=== PATIENT | female | born 1965 | race Two or more races ===

== ENCOUNTER 2016-08-29 16:59 | Emergency (ER) | payer BC, OTHER ==
[~2016-08-29] VITALS: Ht 165.1 cm; Wt 97.5 kg
[~2016-08-29 16:59] MED LIST: FERR325T72 PO; PANT40TA3 PO
[2016-08-29] MEDS ORDERED: KETOROLAC TROMETHAMINE 60 MG/2 ML SYRINGE. IM ONE (19:00)
[2016-08-29 19:05] VITALS: BP 165/79
--- NOTE | 2016-08-29 19:17 | PHYS DOC ---
Past Medical History Past Medical History: No Pertinent History Past Surgical History: Other Additional Past Surgical Histo: ovarian cyst Alcohol Use: None Drug Use: None Adult General Chief Complaint Chief Complaint: CHEST PAIN HPI HPI 51-year-old Croatian-speaking female whose been having ongoing left upper chest wall pain for the last 2 months. She is also complaining of some sided lower lumbar tenderness for the last 4 days that she states is worse with movement. She denies any inciting injury. She denies any history of heart problems. She has been taking ibuprofen which has relieved some of her symptoms. She does not appear to be in any acute distress upon my initial evaluation. She does not smoke. Review of Systems Review of Systems Constitutional: Denies fever or chills [] Eyes: Denies change in visual acuity, redness, or eye pain [] HENT: Denies nasal congestion or sore throat [] Respiratory: Denies cough or shortness of breath [] Cardiovascular: No additional information not addressed in HPI [] GI: Denies abdominal pain, nausea, vomiting, bloody stools or diarrhea [] : Denies dysuria or hematuria [] Musculoskeletal: Denies back pain or joint pain [] Integument: Denies rash or skin lesions [] Neurologic: Denies headache, focal weakness or sensory changes [] Endocrine: Denies polyuria or polydipsia [] Current Medications Current Medications Current Medications Medications (Trade) Dose Ordered Sig/[facility] Start Time Stop Time Status Last Admin Dose Admin Ketorolac Tromethamine (Toradol Im) 60 mg 1X ONCE 08/29/16 19:00 08/29/16 19:01 DC 08/29/16 19:18 60 MG Allergies Allergies Allergies Coded Allergies Type Severity Reaction Last Updated Verified No Known Drug Allergies 11/26/14 No Physical Exam Physical Exam Constitutional: Well developed, well nourished, no acute distress, non-toxic appearance. [] HENT: Normocephalic, atraumatic, bilateral external ears normal, oropharynx moist, no oral exudates, nose normal. [] Eyes: PERRLA, EOMI, conjunctiva normal, no discharge. [] Neck: Normal range of motion, no tenderness, supple, no stridor. [] Cardiovascular:Heart rate regular rhythm, no murmur [] Lungs & Thorax: Bilateral breath sounds clear to auscultation [] Abdomen: Bowel sounds normal, soft, no tenderness, no masses, no pulsatile masses. [] Skin: Warm, dry, no erythema, no rash. [] Back: No tenderness, no CVA tenderness. [] Extremities: No tenderness, no cyanosis, no clubbing, ROM intact, no edema. [] Neurologic: Alert and oriented X 3, normal motor function, normal sensory function, no focal deficits noted. [] Psychologic: Affect normal, judgement normal, mood normal. [] Current Patient Data Vital Signs Vital Signs Date Time Temp Pulse Resp B/P Pulse Ox O2 Delivery O2 Flow Rate FiO2 08/29/16 17:36 98.0 74 18 172/98 99 Room Air 98.0 Lab Values Laboratory Tests Test 08/29/16 18:15 Troponin I Quantitative < 0.017ng/mL (0.000-0.055) EKG EKG EKG as interpreted by me shows a sinus rhythm with a rate of 67 beats per. There are no obvious ischemic findings. This EKG does not meet STEMI criteria. Radiology/Procedures Radiology/Procedures One view of the chest does not reveal any acute cardiopulmonary process. Course & Med Decision Making Course & Med Decision Making Pertinent Labs and Imaging studies reviewed. (See chart for details) [] Dragon Disclaimer Dragon Disclaimer This electronic medical record was generated, in whole or in part, using a voice recognition dictation system. Departure Departure Impression: Primary Impression: Chest wall pain Additional Impression: Lumbar pain Disposition: 01 HOME, SELF-CARE Admitting Physician: Other Condition: STABLE Referrals: NO PCP (PCP) Patient Instructions: Back Pain, Adult, [id number], Chest Wall Pain, Easy-to- Read Additional Instructions: Please take your medication as prescribed and avoid any strenuous activities. Follow up with your primary doctor in the next 2-3 days for your low back pain and chest pain. Return to the ER if you develop any worsening of your symptoms. Scripts Cyclobenzaprine Hcl 10 Mg [id number] Mg PO TID #15 TAB Prov:JEREMIAH MIRANDA DO 08/29/16 Ibuprofen 800 Mg [id number] Mg PO PRN Q6HRS PRN INFLAMMATION #20 TAB Prov:JEREMIAH MIRANDA DO 08/29/16 Problem Qualifiers JEREMIAH MIRANDA DO Aug 29, 2016 19:17
[2016-08-29] MEDS ORDERED: IBUP-1060 PO (19:22)
[2016-08-29] MEDS ORDERED: CYCL10TA2 PO (19:22)
--- NOTE | 2016-08-30 08:38 | RAD ---
Portable chest, 08/29/2016: History: Chest pain Comparison is made to a study from 07/25/2011. The heart is at the upper limits of normal in size. The pulmonary vascularity is normal. No pulmonary infiltrates are seen. There is no evidence of pleural fluid. Mild spurring is present in the spine. IMPRESSION: No acute cardiopulmonary abnormality is detected.
--- NOTE | 2016-08-30 09:41 | EKG ---
[facility] [address] [place] [address] Test Date: 2016-08-29 Test Time: 18:12:16 Pat Name: EDD CASTELLANOS Department: Room: Gender: F Tender Labor: : 1965 Requested By: JEREMIAH MIRANDA Order Number: [id number] Reading MD: Delmi Naylor Measurements Intervals [place] Rate: 67 P: 38 IA: 178 QRS: 19 QRSD: 92 T: 43 QT: 420 QTc: 447 Interpretive Statements SINUS RHYTHM NO SPECIFIC ECG ABNORMALITIES RI6.01 No previous ECG available for comparison Electronically Signed On 08-30-2016 20:55:39 CDT by Delmi Naylor
== END 2016-08-29 19:29 | disposition home or self-care (01) ==
LOC: ER 16:59
DX: R07.89 Other chest pain (principal); M54.5 Low back pain
CPT/HCPCS: 36415; 71010; 84484; 93005; 96372; 99285; J1885

== ENCOUNTER 2018-09-10 08:07 | Inpatient (IN) | payer SELFPAY ==
[~2018-09-10] VITALS: Ht 167.6 cm; Wt 93.0 kg
[~2018-09-10 08:07] MED LIST changes: +CYCL10TA2 PO; +IBUP-1060 PO
--- NOTE | 2018-09-10 08:25 | PHYS DOC ---
Past Medical History Past Medical History: No Pertinent History Past Surgical History: Other Additional Past Surgical Histo: ovarian cyst Alcohol Use: None Drug Use: None Adult General Chief Complaint Chief Complaint: FLANK PAIN HPI HPI Patient is a 53 year old female with a history of anemia presents to the ED complaining of flank pain 5 days ago. Patient states she started having pain 5 days ago. Describes the pain as sharp. Rates the pain as 6 out of 10. States that she has some urinary frequency/urgency problems. Denies dysuria, hematuria , history of kidney stones, chest pain, shortness of breath, diarrhea, blood in stool, headache or weakness. Review of Systems Review of Systems Constitutional: Denies fever or chills [] Eyes: Denies change in visual acuity, redness, or eye pain [] HENT: Denies nasal congestion or sore throat [] Respiratory: Denies cough or shortness of breath [] Cardiovascular: No additional information not addressed in HPI [] GI: Complains of flank pain. Denies abdominal pain, nausea, vomiting, bloody stools or diarrhea [] : Denies dysuria or hematuria [] Musculoskeletal: Denies back pain or joint pain [] Integument: Denies rash or skin lesions [] Neurologic: Denies headache, focal weakness or sensory changes [] All other systems were reviewed and found to be within normal limits, except as documented in this note. Current Medications Current Medications Current Medications Medications (Trade) Dose Ordered Sig/[facility] Start Time Stop Time Status Last Admin Dose Admin Ketorolac Tromethamine (Toradol 30mg Vial) 30 mg 1X ONCE 09/10/18 08:30 09/10/18 08:32 DC 09/10/18 08:55 30 MG Ondansetron HCl (Zofran) 4 mg 1X ONCE 09/10/18 08:30 09/10/18 08:32 DC 09/10/18 08:53 4 MG Allergies Allergies Allergies Coded Allergies Type Severity Reaction Last Updated Verified No Known Drug Allergies 11/26/14 No Physical Exam Physical Exam Constitutional: Well developed, well nourished, no acute distress, non-toxic appearance. [] HENT: Normocephalic, atraumatic Eyes: PERRLA, EOMI, conjunctiva normal, no discharge. [] Neck: Normal range of motion, no tenderness, supple, no stridor. [] Cardiovascular:Heart rate regular rhythm, no murmur [] Lungs & Thorax: Bilateral breath sounds clear to auscultation [] Abdomen: Bowel sounds normal, soft, no tenderness, Negative mcburneys/murphys. no masses, no pulsatile masses. [] Skin: Warm, dry, no erythema, no rash. [] Back: No tenderness, no CVA tenderness. [] Extremities: No tenderness, no cyanosis, no clubbing, ROM intact, no edema. [] Neurologic: Alert and oriented X 3, normal motor function, normal sensory function, no focal deficits noted. [] Psychologic: Affect normal, judgement normal, mood normal. [] Current Patient Data Vital Signs Vital Signs Date Time Temp Pulse Resp B/P (MAP) Pulse Ox O2 Delivery O2 Flow Rate FiO2 09/10/18 10:11 62 169/78 (108) 100 Room Air 09/10/18 08:10 98.0 14 98.0 Lab Values Laboratory Tests Test 09/10/18 08:20 09/10/18 08:21 09/10/18 08:50 Urine Collection Type Void Urine Color Yellow Urine Clarity Clear Urine pH 6.5 Urine Specific [place] 1.015 Urine Protein Negative mg/dL (NEG-TRACE) Urine Glucose (UA) Negative mg/dL (NEG) Urine Ketones (Stick) Negative mg/dL (NEG) Urine Blood Negative (NEG) Urine Nitrite Negative (NEG) Urine Bilirubin Negative (NEG) Urine Urobilinogen Dipstick 0.2 mg/dL (0.2 mg/dL) Urine Leukocyte Esterase Trace (NEG) Urine RBC Occ /HPF (0-2) Urine WBC 1-4 /HPF (0-4) Urine Squamous Epithelial Cells Mod /LPF Urine Bacteria Few /HPF (0-FEW) Urine Mucus Slight /LPF POC Urine HCG, Qualitative Hcg negative (Negative) White Blood Count 6.2 x10^3/uL (4.0-11.0) Red Blood Count 4.66 x10^6/uL (3.50-5.40) Hemoglobin 13.8 g/dL (12.0-15.5) Hematocrit 41.5 % (36.0-47.0) Mean Corpuscular Volume 89 fL (79-100) Mean Corpuscular Hemoglobin 30 pg (25-35) Mean Corpuscular Hemoglobin Concent 33 g/dL (31-37) Red Cell Distribution Width 14.2 % (11.5-14.5) Platelet Count 274 x10^3/uL (140-400) Neutrophils (%) (Auto) 53 % (31-73) Lymphocytes (%) (Auto) 36 % (24-48) Monocytes (%) (Auto) 8 % (0-9) Eosinophils (%) (Auto) 2 % (0-3) Basophils (%) (Auto) 1 % (0-3) Neutrophils # (Auto) 3.3 x10^3uL (1.8-7.7) Lymphocytes # (Auto) 2.2 x10^3/uL (1.0-4.8) Monocytes # (Auto) 0.5 x10^3/uL (0.0-1.1) Eosinophils # (Auto) 0.1 x10^3/uL (0.0-0.7) Basophils # (Auto) 0.0 x10^3/uL (0.0-0.2) Sodium Level 141 mmol/L (136-145) Potassium Level 3.5 mmol/L (3.5-5.1) Chloride Level 103 mmol/L (98-107) Carbon Dioxide Level 30 mmol/L (21-32) Anion Gap 8 (6-14) Blood Urea Nitrogen 12 mg/dL (7-20) Creatinine 0.8 mg/dL (0.6-1.0) Estimated GFR (Cockcroft-Gault) 75.3 BUN/Creatinine Ratio 15 (6-20) Glucose Level 124 mg/dL (70-99) H Calcium Level 8.8 mg/dL (8.5-10.1) Total Bilirubin 0.4 mg/dL (0.2-1.0) Aspartate Amino Transferase (AST) 41 U/L (15-37) H Alanine Aminotransferase (ALT) 49 U/L (14-59) Alkaline Phosphatase 120 U/L (46-116) H Total Protein 7.8 g/dL (6.4-8.2) Albumin 3.6 g/dL (3.4-5.0) Albumin/Globulin Ratio 0.9 (1.0-1.7) L Lipase 128 U/L (73-393) Laboratory Tests 09/10/18 08:50 Laboratory Tests 09/10/18 08:50 EKG EKG [] Radiology/Procedures Radiology/Procedures [] CT abdomen/pelvis without contrast 09/10/2018 8:20 AM INDICATION: Right flank pain for 2 weeks COMPARISON: None available TECHNIQUE: Multiple axial CT images of the abdomen and pelvis were obtained without intravenous contrast. Coronal and sagittal reformats are provided. FINDINGS: Mild bronchial wall thickening is noted at the lung bases. There is bibasilar subsegmental atelectasis. Heart size is within normal limits. Evaluation of the solid abdominal viscera is limited by the lack of intravenous contrast. Liver, spleen, bilateral adrenal glands and pancreas are normal in appearance. Calcified gallstone is identified within gallbladder. There are no adjacent inflammatory changes. Abdominal aorta is normal in course and caliber. There are no pathologically enlarged lymph nodes in abdomen and pelvis. There is no free fluid or free intraperitoneal air. The kidneys are relatively symmetric in appearance. There is no suspicious renal mass within the limitations of a noncontrast examination. There is no hydronephrosis. There are no calculi within the kidneys, ureters or urinary bladder. There is mild colonic diverticulosis. There is abnormal focal dilatation of the mid appendix measuring up to 11 mm without significant adjacent inflammatory changes. Normal appendix lumen measures approximately 4 mm. There is additional focal dilatation of the tip of the appendix measuring up to 9 mm. Small large bowel are normal in caliber. No evidence for bowel obstruction or inflammation. No suspicious osseous abnormality is identified. There is minimal dextroconvex curvature of the lumbar spine. Uterus is normal by CT. Suspicious adnexal mass identified. IMPRESSION: 1. There are focal areas of dilatation of the appendix measuring up to 11 mm involving the mid appendix. No adjacent inflammatory changes are present. Findings are atypical for appendicitis, however may be seen with a developing mucocele or alternate appendiceal lesion. No significant lymphadenopathy is identified within the right lower quadrant mesentery. 2. No evidence for obstructive uropathy. No renal calculi are identified. There is no hydronephrosis. 3. Mild diverticulosis. Course & Med Decision Making Course & Med Decision Making Pertinent Labs and Imaging studies reviewed. (See chart for details) Abnormal findings on CT imaging of appendix. No tenderness or wbc. Will discuss with on-call surgeon. []Discussed case with Dr. Mazariegos. States he will see patient as consult this afternoon and decide further management. Patient made NPO. Last meal was last night. Discussed case with Dr. Salvador. Agrees to admission and further management of patient. Patient stable for admission; resting comfortably at this time. Dragon Disclaimer Dragon Disclaimer This electronic medical record was generated, in whole or in part, using a voice recognition dictation system. Departure Departure Impression: Primary Impression: Abdominal pain Additional Impression: Appendicitis Disposition: ADMITTED INPATIENT Admitting Physician: Juani Salvador Condition: STABLE Referrals: NO PCP (PCP) Problem Qualifiers CHANI MORGAN Sep 10, 2018 08:25
[2018-09-10] MEDS ORDERED: KETOROLAC 30 MG/ML VIAL. IV ONE (08:30)
[2018-09-10] MEDS ORDERED: ONDANSETRON PF 4 MG/2 ML VIAL. IV ONE (08:30)
[2018-09-10 08:41] LABS: BILIRUBIN,URINE NEGATIVE (NEG); CLARITY,URINE CLEAR; COLOR,URINE YELLOW; NITRITE,URINE NEGATIVE (NEG); PH,URINE 6.5; PROTEIN,URINE NEGATIVE (NEG-TRACE); UROBILINOGEN,URINE 0.2 mg/dL (0.2 mg/dL)
[2018-09-10 08:48] LABS: SQUAMOUS EPITHELIAL CELL,UR MOD /LPF
[2018-09-10 08:49] LABS: BACTERIA,URINE FEW /HPF (0-FEW); RBC,URINE OCC /HPF (0-2)
[2018-09-10 09:07] LABS: BASO % 1 % (0-3); EOS # 0.1 x10^3/uL (0.0-0.7); EOS % 2 % (0-3); HEMATOCRIT 41.5 % (36.0-47.0); HEMOGLOBIN 13.8 g/dL (12.0-15.5); LYMPH # 2.2 x10^3/uL (1.0-4.8); LYMPH % 36 % (24-48); MEAN CORPUSCULAR HEMOGLOBIN 30 pg (25-35); MEAN CORPUSCULAR HGB CONC 33 g/dL (31-37); MEAN CORPUSCULAR VOLUME 89 fL (79-100); MONO # 0.5 x10^3/uL (0.0-1.1); MONO % 8 % (0-9); NEUT # 3.3 x10^3uL (1.8-7.7); NEUT % 53 % (31-73); PLATELET COUNT 274 x10^3/uL (140-400); RED BLOOD COUNT 4.66 x10^6/uL (3.50-5.40); RED CELL DISTRIBUTION WIDTH 14.2 % (11.5-14.5); WHITE BLOOD COUNT 6.2 x10^3/uL (4.0-11.0)
[2018-09-10 09:15] LABS: CALCIUM 8.8 mg/dL (8.5-10.1); CREATININE 0.8 mg/dL (0.6-1.0); GFR 75.3; POTASSIUM 3.5 mmol/L (3.5-5.1)
[2018-09-10 09:20] LABS: ALBUMIN 3.6 g/dL (3.4-5.0); ALBUMIN/GLOBULIN RATIO 0.9 (1.0-1.7); TOTAL BILIRUBIN 0.4 mg/dL (0.2-1.0); TOTAL PROTEIN 7.8 g/dL (6.4-8.2)
--- NOTE | 2018-09-10 09:33 | RAD ---
PQRS Compliance Statement: One or more of the following individualized dose reduction techniques were utilized for this examination: 1. Automated exposure control 2. Adjustment of the mA and/or kV according to patient size 3. Use of iterative reconstruction technique CT abdomen/pelvis without contrast 09/10/2018 8:20 AM INDICATION: Right flank pain for 2 weeks COMPARISON: None available TECHNIQUE: Multiple axial CT images of the abdomen and pelvis were obtained without intravenous contrast. Coronal and sagittal reformats are provided. FINDINGS: Mild bronchial wall thickening is noted at the lung bases. There is bibasilar subsegmental atelectasis. Heart size is within normal limits. Evaluation of the solid abdominal viscera is limited by the lack of intravenous contrast. Liver, spleen, bilateral adrenal glands and pancreas are normal in appearance. Calcified gallstone is identified within gallbladder. There are no adjacent inflammatory changes. Abdominal aorta is normal in course and caliber. There are no pathologically enlarged lymph nodes in abdomen and pelvis. There is no free fluid or free intraperitoneal air. The kidneys are relatively symmetric in appearance. There is no suspicious renal mass within the limitations of a noncontrast examination. There is no hydronephrosis. There are no calculi within the kidneys, ureters or urinary bladder. There is mild colonic diverticulosis. There is abnormal focal dilatation of the mid appendix measuring up to 11 mm without significant adjacent inflammatory changes. Normal appendix lumen measures approximately 4 mm. There is additional focal dilatation of the tip of the appendix measuring up to 9 mm. Small large bowel are normal in caliber. No evidence for bowel obstruction or inflammation. No suspicious osseous abnormality is identified. There is minimal dextroconvex curvature of the lumbar spine. Uterus is normal by CT. Suspicious adnexal mass identified. IMPRESSION: 1. There are focal areas of dilatation of the appendix measuring up to 11 mm involving the mid appendix. No adjacent inflammatory changes are present. Findings are atypical for appendicitis, however may be seen with a developing mucocele or alternate appendiceal lesion. No significant lymphadenopathy is identified within the right lower quadrant mesentery. 2. No evidence for obstructive uropathy. No renal calculi are identified. There is no hydronephrosis. 3. Mild diverticulosis. Electronically signed by: Heaven Dumont MD (09/10/2018 9:30 AM) [id number]
[2018-09-10] MEDS ORDERED: ONDANSETRON PF 4 MG/2 ML VIAL. IV PRN ×4 (10:45→11:15)
[2018-09-10] MEDS ORDERED: fentaNYL PF VIAL 100 MCG/2 ML VIAL IV PRN ×5 (10:45→11:00)
[2018-09-10] MEDS: IV RINGERS,LACTATED 1000ML 1,000 ML IV SCH ×2 (10:51→21:04)
[2018-09-10] MEDS ORDERED: IV RINGERS,LACTATED 1000ML 1,000 ML IV SCH (10:51)
--- NOTE | 2018-09-10 10:56 | PDOC2 ---
MALENA VERDIN PATTERN CHART WRITER 09/10/18 1056: CONSULT Date of Consult Date of Consult DATE: 09/10/18 TIME: 10:50 Reason for Consult Reason for Consult: abdominal pain Referring Physician Referring Physician: ER Identification/Chief Complaint Chief Complaint abdominal pain Source Source: Chart review, Patient History of Present Illness Reason for Visit: Family interprets for patient . Repots pain to right back and mid right abdomen for 6 days. Has been eating less, some bloating with eating. Denies n/ v. No fevers or chills. Pain has stayed about the same. some chronic issues with constipation and diarrhea. Past Medical History Cardiovascular: No pertinent hx Pulmonary: No pertinent hx GI: No pertinent hx Heme/Onc: No pertinent hx Hepatobiliary: No pertinent hx Past Surgical History Past Surgical History: No pertinent history Family History Family History: No Significant Social History ALCOHOL: none Drugs: None Lives: with Family Domestic Violence: Neg Current Problem List Problem List Problems Medical Problems: (1) Abdominal pain Status: Acute (2) Appendicitis Status: Acute Current Medications Current Medications Current Medications Ondansetron HCl (Zofran) 4 mg 1X ONCE IV Last administered on 09/10/18at 08:53; Start 09/10/18 at 08:30; Stop 09/10/18 at 08:32; Status DC Ketorolac Tromethamine (Toradol 30mg Vial) 30 mg 1X ONCE IV Last administered on 09/10/18at 08:55; Start 09/10/18 at 08:30; Stop 09/10/18 at 08:32; Status DC Ondansetron HCl (Zofran) 4 mg PRN Q8HRS PRN IV NAUSEA/VOMITING; Start 09/10/18 at 10:45; Stop 09/11/18 at 10:44 Fentanyl Citrate (Fentanyl 2ml Vial) 50 mcg PRN Q1HR PRN IV PAIN; Start at 10:45; Stop 09/11/18 at 10:44 Active Scripts Active Cyclobenzaprine Hcl 10 Mg Tablet 10 Mg PO TID Ibuprofen 800 Mg Tablet 800 Mg PO PRN Q6HRS PRN Feosol (Ferrous Sulfate) 325 Mg Tablet 325 Mg PO BID Protonix (Pantoprazole Sodium) 40 Mg Tablet 40 Mg PO DAILYAC Allergies Allergies: Coded Allergies: No Known Drug Allergies (Unverified , 11/26/14) ROS General: No: Chills, Other (fevers) PSYCHOLOGICAL ROS: No: Anxiety, Depression Eyes: No Blurry vision, No Double vision HEENT: No: Sore Throat Hematological and Lymphatic: No: Bleeding Problems, Blood Clots Respiratory: YES: Shortness of breath (due to acute abdominal pain); No: Cough Cardiovascular: No Chest Pain, No Palpitations Gastrointestinal: Yes Other (see hpi) Genitourinary: No Dysuria, No Hematuria Musculoskeletal: No Joint Pain, No Muscle Pain Neurological: No Confusion, No Numbness/Tingling Skin: No Pruritus, No Rash Physical Exam General: Alert, Oriented X3, Cooperative, No acute distress HEENT: PERRLA, Mucous membr. moist/pink Lungs: Clear to auscultation, Normal air movement Heart: Regular rate, Normal S1, Normal S2, No murmurs Abdomen: Soft, No tenderness, Other (ND) Extremities: No clubbing, No cyanosis Skin: No rashes Neuro: Normal gait, Normal speech Psych/Mental Status: Mental status NL, Mood NL MUSCULOSKELETAL: No deformity, No swelling Vitals VITALS Vital Signs Date Time Temp Pulse Resp B/P (MAP) Pulse Ox O2 Delivery O2 Flow Rate FiO2 09/10/18 08:10 98.0 63 14 199/104 (135) 98 Room Air 98.0 Labs Labs Laboratory Tests Test 09/10/18 08:20 09/10/18 08:21 09/10/18 08:50 Urine Collection Type Void Urine Color Yellow Urine Clarity Clear Urine pH 6.5 Urine Specific [place] 1.015 Urine Protein Negative mg/dL (NEG-TRACE) Urine Glucose (UA) Negative mg/dL (NEG) Urine Ketones (Stick) Negative mg/dL (NEG) Urine Blood Negative (NEG) Urine Nitrite Negative (NEG) Urine Bilirubin Negative (NEG) Urine Urobilinogen Dipstick 0.2 mg/dL (0.2 mg/dL) Urine Leukocyte Esterase Trace (NEG) Urine RBC Occ /HPF (0-2) Urine WBC 1-4 /HPF (0-4) Urine Squamous Epithelial Cells Mod /LPF Urine Bacteria Few /HPF (0-FEW) Urine Mucus Slight /LPF Bedside Urine HCG, Qualitative Hcg negative (Negative) White Blood Count 6.2 x10^3/uL (4.0-11.0) Red Blood Count 4.66 x10^6/uL (3.50-5.40) Hemoglobin 13.8 g/dL (12.0-15.5) Hematocrit 41.5 % (36.0-47.0) Mean Corpuscular Volume 89 fL (79-100) Mean Corpuscular Hemoglobin 30 pg (25-35) Mean Corpuscular Hemoglobin Concent 33 g/dL (31-37) Red Cell Distribution Width 14.2 % (11.5-14.5) Platelet Count 274 x10^3/uL (140-400) Neutrophils (%) (Auto) 53 % (31-73) Lymphocytes (%) (Auto) 36 % (24-48) Monocytes (%) (Auto) 8 % (0-9) Eosinophils (%) (Auto) 2 % (0-3) Basophils (%) (Auto) 1 % (0-3) Neutrophils # (Auto) 3.3 x10^3uL (1.8-7.7) Lymphocytes # (Auto) 2.2 x10^3/uL (1.0-4.8) Monocytes # (Auto) 0.5 x10^3/uL (0.0-1.1) Eosinophils # (Auto) 0.1 x10^3/uL (0.0-0.7) Basophils # (Auto) 0.0 x10^3/uL (0.0-0.2) Sodium Level 141 mmol/L (136-145) Potassium Level 3.5 mmol/L (3.5-5.1) Chloride Level 103 mmol/L (98-107) Carbon Dioxide Level 30 mmol/L (21-32) Anion Gap 8 (6-14) Blood Urea Nitrogen 12 mg/dL (7-20) Creatinine 0.8 mg/dL (0.6-1.0) Estimated GFR (Cockcroft-Gault) 75.3 BUN/Creatinine Ratio 15 (6-20) Glucose Level 124 mg/dL (70-99) Calcium Level 8.8 mg/dL (8.5-10.1) Total Bilirubin 0.4 mg/dL (0.2-1.0) Aspartate Amino Transf (AST/SGOT) 41 U/L (15-37) Alanine Aminotransferase (ALT/SGPT) 49 U/L (14-59) Alkaline Phosphatase 120 U/L (46-116) Total Protein 7.8 g/dL (6.4-8.2) Albumin 3.6 g/dL (3.4-5.0) Albumin/Globulin Ratio 0.9 (1.0-1.7) Lipase 128 U/L (73-393) Laboratory Tests Test 09/10/18 08:20 09/10/18 08:21 09/10/18 08:50 Urine Collection Type Void Urine Color Yellow Urine Clarity Clear Urine pH 6.5 Urine Specific [place] 1.015 Urine Protein Negative mg/dL (NEG-TRACE) Urine Glucose (UA) Negative mg/dL (NEG) Urine Ketones (Stick) Negative mg/dL (NEG) Urine Blood Negative (NEG) Urine Nitrite Negative (NEG) Urine Bilirubin Negative (NEG) Urine Urobilinogen Dipstick 0.2 mg/dL (0.2 mg/dL) Urine Leukocyte Esterase Trace (NEG) Urine RBC Occ /HPF (0-2) Urine WBC 1-4 /HPF (0-4) Urine Squamous Epithelial Cells Mod /LPF Urine Bacteria Few /HPF (0-FEW) Urine Mucus Slight /LPF Bedside Urine HCG, Qualitative Hcg negative (Negative) White Blood Count 6.2 x10^3/uL (4.0-11.0) Red Blood Count 4.66 x10^6/uL (3.50-5.40) Hemoglobin 13.8 g/dL (12.0-15.5) Hematocrit 41.5 % (36.0-47.0) Mean Corpuscular Volume 89 fL (79-100) Mean Corpuscular Hemoglobin 30 pg (25-35) Mean Corpuscular Hemoglobin Concent 33 g/dL (31-37) Red Cell Distribution Width 14.2 % (11.5-14.5) Platelet Count 274 x10^3/uL (140-400) Neutrophils (%) (Auto) 53 % (31-73) Lymphocytes (%) (Auto) 36 % (24-48) Monocytes (%) (Auto) 8 % (0-9) Eosinophils (%) (Auto) 2 % (0-3) Basophils (%) (Auto) 1 % (0-3) Neutrophils # (Auto) 3.3 x10^3uL (1.8-7.7) Lymphocytes # (Auto) 2.2 x10^3/uL (1.0-4.8) Monocytes # (Auto) 0.5 x10^3/uL (0.0-1.1) Eosinophils # (Auto) 0.1 x10^3/uL (0.0-0.7) Basophils # (Auto) 0.0 x10^3/uL (0.0-0.2) Sodium Level 141 mmol/L (136-145) Potassium Level 3.5 mmol/L (3.5-5.1) Chloride Level 103 mmol/L (98-107) Carbon Dioxide Level 30 mmol/L (21-32) Anion Gap 8 (6-14) Blood Urea Nitrogen 12 mg/dL (7-20) Creatinine 0.8 mg/dL (0.6-1.0) Estimated GFR (Cockcroft-Gault) 75.3 BUN/Creatinine Ratio 15 (6-20) Glucose Level 124 mg/dL (70-99) Calcium Level 8.8 mg/dL (8.5-10.1) Total Bilirubin 0.4 mg/dL (0.2-1.0) Aspartate Amino Transf (AST/SGOT) 41 U/L (15-37) Alanine Aminotransferase (ALT/SGPT) 49 U/L (14-59) Alkaline Phosphatase 120 U/L (46-116) Total Protein 7.8 g/dL (6.4-8.2) Albumin 3.6 g/dL (3.4-5.0) Albumin/Globulin Ratio 0.9 (1.0-1.7) Lipase 128 U/L (73-393) Assessment/Plan Assessment/Plan abdominal pain x [address] reviewed, possible appendix changes, wbc normal noted gallstone will have Dr Vidal review BORIS VIDAL MD 09/10/18 1656: CONSULT Assessment/Plan Assessment/Plan pt seen, interviewed (with the help of her family) and examined obtained a PIPIDA which showed prompt filling of the GB with drainage into the small bowel BP high will postpone any surgery (appy, lynn) for better BP control will follow Thanks for consult MALENA VERDIN APRN Sep 10, 2018 10:56 BORIS VIDAL MD Sep 10, 2018 16:56
[2018-09-10] MEDS ORDERED: PROCHLORPERAZINE 10 MG/2 ML VIAL. IV PRN ×2 (11:00)
[2018-09-10] MEDS ORDERED: HYDROmorphone 2 MG/ML VIAL IV PRN ×2 (11:00)
[2018-09-10] MEDS ORDERED: MORPHINE SULFATE 2 MG/ML VIAL. IV PRN ×2 (11:00)
--- NOTE | 2018-09-10 11:12 | PDOC1 ---
History and Physical Date of Admission Date of Admission DATE: 09/10/18 TIME: 11:09 Identification/Chief Complaint Chief Complaint Back pain Source Source: Caregiver, Chart review, Patient History of Present Illness History of Present Illness 39-year-old female, minimal [place], no significant past medical history, 5 to six-day history of what sounds like muscle sprain or back pain, no trauma. CAT scan was done which showed generous sized appendix hence patient admitted with GS on board. npo. dW DTR AT BEDSIDE , SEEN AT er NO Home meds to reconcile, blood pressure on the high side-asymptomatic Past Medical History Cardiovascular: No pertinent hx Pulmonary: No pertinent hx GI: No pertinent hx Heme/Onc: No pertinent hx Hepatobiliary: No pertinent hx Past Surgical History Past Surgical History: No pertinent history Family History Family History: No Significant Social History Smoke: No ALCOHOL: none Drugs: None Current Problem List Problem List Problems Medical Problems: (1) Abdominal pain Status: Acute (2) Appendicitis Status: Acute Current Medications Current Medications Current Medications Ondansetron HCl (Zofran) 4 mg 1X ONCE IV Last administered on 09/10/18at 08:53; Start 09/10/18 at 08:30; Stop 09/10/18 at 08:32; Status DC Ketorolac Tromethamine (Toradol 30mg Vial) 30 mg 1X ONCE IV Last administered on 09/10/18at 08:55; Start 09/10/18 at 08:30; Stop 09/10/18 at 08:32; Status DC Ondansetron HCl (Zofran) 4 mg PRN Q8HRS PRN IV NAUSEA/VOMITING; Start 09/10/18 at 10:45; Stop 09/11/18 at 10:44 Fentanyl Citrate (Fentanyl 2ml Vial) 50 mcg PRN Q1HR PRN IV PAIN; Start at 10:45; Stop 09/11/18 at 10:44 Ondansetron HCl (Zofran) 4 mg PRN Q6HRS PRN IV NAUSEA/VOMITING; Start 09/10/18 at 11:00; Stop 09/11/18 at 10:59 Fentanyl Citrate (Fentanyl 2ml Vial) 25 mcg PRN Q5MIN PRN IV MILD PAIN; Start 09/10/18 at 11:00; Stop 09/11/18 at 10:59 Fentanyl Citrate (Fentanyl 2ml Vial) 50 mcg PRN Q5MIN PRN IV MODERATE TO SEVERE PAIN; Start 09/10/18 at 11:00; Stop 09/11/18 at 10:59 Morphine Sulfate (Morphine Sulfate) 1 mg PRN Q10MIN PRN IV SEVERE PAIN; Start 09/10/18 at 11:00; Stop 09/11/18 at 10:59 Ringer's Solution 1,000 ml @ 30 mls/hr Q24H IV ; Start 09/10/18 at 10:51; Stop 09/10/18 at 22:50 Hydromorphone HCl (Dilaudid) 0.5 mg PRN Q10MIN PRN IV SEV PAIN, Second choice; Start 09/10/18 at 11:00; Stop 09/11/18 at 10:59 Prochlorperazine Edisylate (Compazine) 5 mg PACU PRN PRN IV NAUSEA, MRX1; Start 09/10/18 at 11:00; Stop 09/11/18 at 10:59 Ondansetron HCl (Zofran) 4 mg PRN Q6HRS PRN IV NAUSEA/VOMITING; Start 09/10/18 at 11:00; Stop 09/11/18 at 10:59; Status UNV Fentanyl Citrate (Fentanyl 2ml Vial) 25 mcg PRN Q5MIN PRN IV MILD PAIN; Start 09/10/18 at 11:00; Stop 09/11/18 at 10:59; Status UNV Fentanyl Citrate (Fentanyl 2ml Vial) 50 mcg PRN Q5MIN PRN IV MODERATE TO SEVERE PAIN; Start 09/10/18 at 11:00; Stop 09/11/18 at 10:59; Status UNV Morphine Sulfate (Morphine Sulfate) 1 mg PRN Q10MIN PRN IV SEVERE PAIN; Start 09/10/18 at 11:00; Stop 09/11/18 at 10:59; Status UNV Ringer's Solution 1,000 ml @ 30 mls/hr Q24H IV ; Start 09/10/18 at 10:51; Stop 09/10/18 at 22:50; Status UNV Hydromorphone HCl (Dilaudid) 0.5 mg PRN Q10MIN PRN IV SEV PAIN, Second choice; Start 09/10/18 at 11:00; Stop 09/11/18 at 10:59; Status UNV Prochlorperazine Edisylate (Compazine) 5 mg PACU PRN PRN IV NAUSEA, MRX1; Start 09/10/18 at 11:00; Stop 09/11/18 at 10:59; Status UNV Active Scripts Active Cyclobenzaprine Hcl 10 Mg Tablet 10 Mg PO TID Ibuprofen 800 Mg Tablet 800 Mg PO PRN Q6HRS PRN Feosol (Ferrous Sulfate) 325 Mg Tablet 325 Mg PO BID Protonix (Pantoprazole Sodium) 40 Mg Tablet 40 Mg PO DAILYAC Allergies Allergies: Coded Allergies: No Known Drug Allergies (Unverified , 11/26/14) ROS Review of System back pain Physical Exam General: Alert, Oriented X3, Cooperative, No acute distress HEENT: Atraumatic, PERRLA, EOMI Lungs: Clear to auscultation, Normal air movement Heart: S1S2, RRR, no thrills, no rubs, no gallops, no murmurs Cardiovascular: S1, S2 Abdomen: Normal bowel sounds, Soft, No tenderness, No hepatosplenomegaly, No masses Rectal Exam: not examined PELVIC: Nml ext genitalia Extremities: No clubbing, No cyanosis, No edema, Normal pulses, No tenderness/ swelling Skin: No rashes, No breakdown, No significant lesion Neuro: Normal gait, Normal speech, Strength at 5/5 X4 ext, Normal tone, Sensation intact, Cranial nerves 3-12 NL, Reflexes 2+ Psych/Mental Status: Mental status NL, Mood NL Vitals Vitals Vital Signs Date Time Temp Pulse Resp B/P (MAP) Pulse Ox O2 Delivery O2 Flow Rate FiO2 09/10/18 08:10 98.0 63 14 199/104 (135) 98 Room Air 98.0 Labs Labs Laboratory Tests Test 09/10/18 08:20 09/10/18 08:21 09/10/18 08:50 Urine Collection Type Void Urine Color Yellow Urine Clarity Clear Urine pH 6.5 Urine Specific [place] 1.015 Urine Protein Negative mg/dL (NEG-TRACE) Urine Glucose (UA) Negative mg/dL (NEG) Urine Ketones (Stick) Negative mg/dL (NEG) Urine Blood Negative (NEG) Urine Nitrite Negative (NEG) Urine Bilirubin Negative (NEG) Urine Urobilinogen Dipstick 0.2 mg/dL (0.2 mg/dL) Urine Leukocyte Esterase Trace (NEG) Urine RBC Occ /HPF (0-2) Urine WBC 1-4 /HPF (0-4) Urine Squamous Epithelial Cells Mod /LPF Urine Bacteria Few /HPF (0-FEW) Urine Mucus Slight /LPF Bedside Urine HCG, Qualitative Hcg negative (Negative) White Blood Count 6.2 x10^3/uL (4.0-11.0) Red Blood Count 4.66 x10^6/uL (3.50-5.40) Hemoglobin 13.8 g/dL (12.0-15.5) Hematocrit 41.5 % (36.0-47.0) Mean Corpuscular Volume 89 fL (79-100) Mean Corpuscular Hemoglobin 30 pg (25-35) Mean Corpuscular Hemoglobin Concent 33 g/dL (31-37) Red Cell Distribution Width 14.2 % (11.5-14.5) Platelet Count 274 x10^3/uL (140-400) Neutrophils (%) (Auto) 53 % (31-73) Lymphocytes (%) (Auto) 36 % (24-48) Monocytes (%) (Auto) 8 % (0-9) Eosinophils (%) (Auto) 2 % (0-3) Basophils (%) (Auto) 1 % (0-3) Neutrophils # (Auto) 3.3 x10^3uL (1.8-7.7) Lymphocytes # (Auto) 2.2 x10^3/uL (1.0-4.8) Monocytes # (Auto) 0.5 x10^3/uL (0.0-1.1) Eosinophils # (Auto) 0.1 x10^3/uL (0.0-0.7) Basophils # (Auto) 0.0 x10^3/uL (0.0-0.2) Sodium Level 141 mmol/L (136-145) Potassium Level 3.5 mmol/L (3.5-5.1) Chloride Level 103 mmol/L (98-107) Carbon Dioxide Level 30 mmol/L (21-32) Anion Gap 8 (6-14) Blood Urea Nitrogen 12 mg/dL (7-20) Creatinine 0.8 mg/dL (0.6-1.0) Estimated GFR (Cockcroft-Gault) 75.3 BUN/Creatinine Ratio 15 (6-20) Glucose Level 124 mg/dL (70-99) Calcium Level 8.8 mg/dL (8.5-10.1) Total Bilirubin 0.4 mg/dL (0.2-1.0) Aspartate Amino Transf (AST/SGOT) 41 U/L (15-37) Alanine Aminotransferase (ALT/SGPT) 49 U/L (14-59) Alkaline Phosphatase 120 U/L (46-116) Total Protein 7.8 g/dL (6.4-8.2) Albumin 3.6 g/dL (3.4-5.0) Albumin/Globulin Ratio 0.9 (1.0-1.7) Lipase 128 U/L (73-393) Laboratory Tests Test 09/10/18 08:20 09/10/18 08:21 09/10/18 08:50 Urine Collection Type Void Urine Color Yellow Urine Clarity Clear Urine pH 6.5 Urine Specific [place] 1.015 Urine Protein Negative mg/dL (NEG-TRACE) Urine Glucose (UA) Negative mg/dL (NEG) Urine Ketones (Stick) Negative mg/dL (NEG) Urine Blood Negative (NEG) Urine Nitrite Negative (NEG) Urine Bilirubin Negative (NEG) Urine Urobilinogen Dipstick 0.2 mg/dL (0.2 mg/dL) Urine Leukocyte Esterase Trace (NEG) Urine RBC Occ /HPF (0-2) Urine WBC 1-4 /HPF (0-4) Urine Squamous Epithelial Cells Mod /LPF Urine Bacteria Few /HPF (0-FEW) Urine Mucus Slight /LPF Bedside Urine HCG, Qualitative Hcg negative (Negative) White Blood Count 6.2 x10^3/uL (4.0-11.0) Red Blood Count 4.66 x10^6/uL (3.50-5.40) Hemoglobin 13.8 g/dL (12.0-15.5) Hematocrit 41.5 % (36.0-47.0) Mean Corpuscular Volume 89 fL (79-100) Mean Corpuscular Hemoglobin 30 pg (25-35) Mean Corpuscular Hemoglobin Concent 33 g/dL (31-37) Red Cell Distribution Width 14.2 % (11.5-14.5) Platelet Count 274 x10^3/uL (140-400) Neutrophils (%) (Auto) 53 % (31-73) Lymphocytes (%) (Auto) 36 % (24-48) Monocytes (%) (Auto) 8 % (0-9) Eosinophils (%) (Auto) 2 % (0-3) Basophils (%) (Auto) 1 % (0-3) Neutrophils # (Auto) 3.3 x10^3uL (1.8-7.7) Lymphocytes # (Auto) 2.2 x10^3/uL (1.0-4.8) Monocytes # (Auto) 0.5 x10^3/uL (0.0-1.1) Eosinophils # (Auto) 0.1 x10^3/uL (0.0-0.7) Basophils # (Auto) 0.0 x10^3/uL (0.0-0.2) Sodium Level 141 mmol/L (136-145) Potassium Level 3.5 mmol/L (3.5-5.1) Chloride Level 103 mmol/L (98-107) Carbon Dioxide Level 30 mmol/L (21-32) Anion Gap 8 (6-14) Blood Urea Nitrogen 12 mg/dL (7-20) Creatinine 0.8 mg/dL (0.6-1.0) Estimated GFR (Cockcroft-Gault) 75.3 BUN/Creatinine Ratio 15 (6-20) Glucose Level 124 mg/dL (70-99) Calcium Level 8.8 mg/dL (8.5-10.1) Total Bilirubin 0.4 mg/dL (0.2-1.0) Aspartate Amino Transf (AST/SGOT) 41 U/L (15-37) Alanine Aminotransferase (ALT/SGPT) 49 U/L (14-59) Alkaline Phosphatase 120 U/L (46-116) Total Protein 7.8 g/dL (6.4-8.2) Albumin 3.6 g/dL (3.4-5.0) Albumin/Globulin Ratio 0.9 (1.0-1.7) Lipase 128 U/L (73-393) VTE Prophylaxis Ordered VTE Prophylaxis Devices: Yes VTE Pharmacological Prophylaxi: Yes Assessment/Plan Assessment/Plan Back pain Minimal abdominal pain, generous sized appendix Obesity BMI 33 Accel hypertension PLAN: By mouth, GS consulted Pain medicine No home meds to reconcile Hydralazine prn Seen at [facility] dw dtr who translates VLADIMIR VALERO MD Sep 10, 2018 11:12
[2018-09-10] MEDS ORDERED: FAMOTIDINE 20 MG/2 ML VIAL IVP ONE (11:15)
[2018-09-10] MEDS ORDERED: BUPIVAC MPF-EPI 0.5%-1:200000 30 ML VIAL. ONE (11:54)
[2018-09-10] MEDS ORDERED: BACITRACIN 50,000 UNIT in IV NORMAL SALINE 500ML BAG 500 ML IRR ONE (13:00)
--- NOTE | 2018-09-10 13:39 | NUR ---
Rec'd from ED with c/o abdominal pain, accompanied by family, pt. speaks no Occitan, questions answered per daughter Caro Camp, see assessment
--- NOTE | 2018-09-10 14:06 | NUR ---
1345 To OR holding per bed accompanied by family members
[2018-09-10] MEDS ORDERED: hydrALAZINE 20 MG/ML VIAL. IVP ONE (14:15)
[2018-09-10] MEDS: hydrALAZINE 20 MG/ML VIAL. IVP PRN ×2 (15:56→20:16)
[2018-09-10 16:14] VITALS: BP 152/90
--- NOTE | 2018-09-10 16:15 | NUR ---
Returned from [facility] BP 152/90 P 87, informed dtr of need for continued medical care regarding Hypertension suggested [facility], will provide address & phone #, informed of clear liquid diet as well, will continue to observe Addendum: 09/10/18 at 1619 by STUART HIDALGO RN Also provided number for [facility].
--- NOTE | 2018-09-10 16:32 | NUR ---
Per Elizabeth, PACU nurse no surgery performed, can have clear liquid diet, recheck BP upon arrival to floor
[2018-09-10 19:00] VITALS: BP 178/88
[2018-09-10] MEDS ORDERED: ACETAMINOPHEN 325 MG TABLET. PO PRN (19:30)
--- NOTE | 2018-09-10 19:57 | NUR ---
LR and bacitracin non-administered by this nurse. Pt. did not have surgery today.
[2018-09-10] MEDS: FAMOTIDINE 20 MG/2 ML VIAL IVP SCH (20:17)
--- NOTE | 2018-09-10 20:20 | NUR ---
Pt. had some nausea and vomiting after being given fentanyl this evening. Zofran given after. 2200 Pt. is resting in bed.
[2018-09-10 23:00] VITALS: BP 157/93
[2018-09-11] VITALS (8 sets, daily range): BP systolic 123–157; BP diastolic 58–79
[2018-09-11 06:39] LABS: BASO % 0 % (0-3); EOS % 0 % (0-3); HEMATOCRIT 41.2 % (36.0-47.0); HEMOGLOBIN 13.8 g/dL (12.0-15.5); LYMPH # 1.7 x10^3/uL (1.0-4.8); LYMPH % 19 % (24-48); MEAN CORPUSCULAR HEMOGLOBIN 30 pg (25-35); MEAN CORPUSCULAR HGB CONC 34 g/dL (31-37); MEAN CORPUSCULAR VOLUME 89 fL (79-100); MONO # 0.5 x10^3/uL (0.0-1.1); MONO % 6 % (0-9); NEUT # 6.7 x10^3uL (1.8-7.7); NEUT % 75 % (31-73); PLATELET COUNT 290 x10^3/uL (140-400); RED BLOOD COUNT 4.65 x10^6/uL (3.50-5.40); RED CELL DISTRIBUTION WIDTH 14.5 % (11.5-14.5); WHITE BLOOD COUNT 8.9 x10^3/uL (4.0-11.0)
[2018-09-11 06:55] LABS: ALBUMIN 3.5 g/dL (3.4-5.0); ALBUMIN/GLOBULIN RATIO 0.8 (1.0-1.7); CALCIUM 9.2 mg/dL (8.5-10.1); CREATININE 0.6 mg/dL (0.6-1.0); POTASSIUM 3.5 mmol/L (3.5-5.1); TOTAL BILIRUBIN 0.4 mg/dL (0.2-1.0); TOTAL PROTEIN 8.1 g/dL (6.4-8.2)
[2018-09-11] MEDS: LIDOCAINE (700MG/PATCH) PATCH. TD SCH (09:00)
--- NOTE | 2018-09-11 09:25 | PDOC ---
MALENA VERDIN PRODUCTION SUPV 09/11/18 0925: SURGICAL PROGRESS NOTE Subjective ongoing right flank/back pain nausea at times Vital Signs Vital Signs Date Time Temp Pulse Resp B/P (MAP) Pulse Ox O2 Delivery O2 Flow Rate FiO2 09/11/18 07:45 Room Air 09/11/18 07:00 98.0 79 16 145/72 (96) 95 98.0 I&O Intake and Output 09/11/18 07:00 Intake Total 0 ml Output Total 150 ml Balance -150 ml Intake Oral 0 ml Output Urine Total 150 ml # Voids 2 General: Alert, Oriented X3, Cooperative, No acute distress Abdomen: Soft, Other (ND, NTTP abdomen ) Labs Laboratory Tests Test 09/10/18 08:20 09/10/18 08:21 09/10/18 08:50 09/10/18 22:04 Urine Collection Type Void Urine Color Yellow Urine Clarity Clear Urine pH 6.5 Urine Specific [place] 1.015 Urine Protein Negative mg/dL (NEG-TRACE) Urine Glucose (UA) Negative mg/dL (NEG) Urine Ketones (Stick) Negative mg/dL (NEG) Urine Blood Negative (NEG) Urine Nitrite Negative (NEG) Urine Bilirubin Negative (NEG) Urine Urobilinogen Dipstick 0.2 mg/dL (0.2 mg/dL) Urine Leukocyte Esterase Trace (NEG) Urine RBC Occ /HPF (0-2) Urine WBC 1-4 /HPF (0-4) Urine Squamous Epithelial Cells Mod /LPF Urine Bacteria Few /HPF (0-FEW) Urine Mucus Slight /LPF Bedside Urine HCG, Qualitative Hcg negative (Negative) White Blood Count 6.2 x10^3/uL (4.0-11.0) Red Blood Count 4.66 x10^6/uL (3.50-5.40) Hemoglobin 13.8 g/dL (12.0-15.5) Hematocrit 41.5 % (36.0-47.0) Mean Corpuscular Volume 89 fL (79-100) Mean Corpuscular Hemoglobin 30 pg (25-35) Mean Corpuscular Hemoglobin Concent 33 g/dL (31-37) Red Cell Distribution Width 14.2 % (11.5-14.5) Platelet Count 274 x10^3/uL (140-400) Neutrophils (%) (Auto) 53 % (31-73) Lymphocytes (%) (Auto) 36 % (24-48) Monocytes (%) (Auto) 8 % (0-9) Eosinophils (%) (Auto) 2 % (0-3) Basophils (%) (Auto) 1 % (0-3) Neutrophils # (Auto) 3.3 x10^3uL (1.8-7.7) Lymphocytes # (Auto) 2.2 x10^3/uL (1.0-4.8) Monocytes # (Auto) 0.5 x10^3/uL (0.0-1.1) Eosinophils # (Auto) 0.1 x10^3/uL (0.0-0.7) Basophils # (Auto) 0.0 x10^3/uL (0.0-0.2) Sodium Level 141 mmol/L (136-145) Potassium Level 3.5 mmol/L (3.5-5.1) Chloride Level 103 mmol/L (98-107) Carbon Dioxide Level 30 mmol/L (21-32) Anion Gap 8 (6-14) Blood Urea Nitrogen 12 mg/dL (7-20) Creatinine 0.8 mg/dL (0.6-1.0) Estimated GFR (Cockcroft-Gault) 75.3 BUN/Creatinine Ratio 15 (6-20) Glucose Level 124 mg/dL (70-99) Calcium Level 8.8 mg/dL (8.5-10.1) Total Bilirubin 0.4 mg/dL (0.2-1.0) Aspartate Amino Transf (AST/SGOT) 41 U/L (15-37) Alanine Aminotransferase (ALT/SGPT) 49 U/L (14-59) Alkaline Phosphatase 120 U/L (46-116) Total Protein 7.8 g/dL (6.4-8.2) Albumin 3.6 g/dL (3.4-5.0) Albumin/Globulin Ratio 0.9 (1.0-1.7) Lipase 128 U/L (73-393) Glucose (Fingerstick) 190 mg/dL (70-99) Test 09/11/18 05:18 White Blood Count 8.9 x10^3/uL (4.0-11.0) Red Blood Count 4.65 x10^6/uL (3.50-5.40) Hemoglobin 13.8 g/dL (12.0-15.5) Hematocrit 41.2 % (36.0-47.0) Mean Corpuscular Volume 89 fL (79-100) Mean Corpuscular Hemoglobin 30 pg (25-35) Mean Corpuscular Hemoglobin Concent 34 g/dL (31-37) Red Cell Distribution Width 14.5 % (11.5-14.5) Platelet Count 290 x10^3/uL (140-400) Neutrophils (%) (Auto) 75 % (31-73) Lymphocytes (%) (Auto) 19 % (24-48) Monocytes (%) (Auto) 6 % (0-9) Eosinophils (%) (Auto) 0 % (0-3) Basophils (%) (Auto) 0 % (0-3) Neutrophils # (Auto) 6.7 x10^3uL (1.8-7.7) Lymphocytes # (Auto) 1.7 x10^3/uL (1.0-4.8) Monocytes # (Auto) 0.5 x10^3/uL (0.0-1.1) Eosinophils # (Auto) 0.0 x10^3/uL (0.0-0.7) Basophils # (Auto) 0.0 x10^3/uL (0.0-0.2) Sodium Level 140 mmol/L (136-145) Potassium Level 3.5 mmol/L (3.5-5.1) Chloride Level 103 mmol/L (98-107) Carbon Dioxide Level 27 mmol/L (21-32) Anion Gap 10 (6-14) Blood Urea Nitrogen 15 mg/dL (7-20) Creatinine 0.6 mg/dL (0.6-1.0) Estimated GFR (Cockcroft-Gault) 105.0 BUN/Creatinine Ratio 25 (6-20) Glucose Level 128 mg/dL (70-99) Calcium Level 9.2 mg/dL (8.5-10.1) Total Bilirubin 0.4 mg/dL (0.2-1.0) Aspartate Amino Transf (AST/SGOT) 38 U/L (15-37) Alanine Aminotransferase (ALT/SGPT) 52 U/L (14-59) Alkaline Phosphatase 113 U/L (46-116) Total Protein 8.1 g/dL (6.4-8.2) Albumin 3.5 g/dL (3.4-5.0) Albumin/Globulin Ratio 0.8 (1.0-1.7) Laboratory Tests Test 09/10/18 22:04 09/11/18 05:18 Glucose (Fingerstick) 190 mg/dL (70-99) White Blood Count 8.9 x10^3/uL (4.0-11.0) Red Blood Count 4.65 x10^6/uL (3.50-5.40) Hemoglobin 13.8 g/dL (12.0-15.5) Hematocrit 41.2 % (36.0-47.0) Mean Corpuscular Volume 89 fL (79-100) Mean Corpuscular Hemoglobin 30 pg (25-35) Mean Corpuscular Hemoglobin Concent 34 g/dL (31-37) Red Cell Distribution Width 14.5 % (11.5-14.5) Platelet Count 290 x10^3/uL (140-400) Neutrophils (%) (Auto) 75 % (31-73) Lymphocytes (%) (Auto) 19 % (24-48) Monocytes (%) (Auto) 6 % (0-9) Eosinophils (%) (Auto) 0 % (0-3) Basophils (%) (Auto) 0 % (0-3) Neutrophils # (Auto) 6.7 x10^3uL (1.8-7.7) Lymphocytes # (Auto) 1.7 x10^3/uL (1.0-4.8) Monocytes # (Auto) 0.5 x10^3/uL (0.0-1.1) Eosinophils # (Auto) 0.0 x10^3/uL (0.0-0.7) Basophils # (Auto) 0.0 x10^3/uL (0.0-0.2) Sodium Level 140 mmol/L (136-145) Potassium Level 3.5 mmol/L (3.5-5.1) Chloride Level 103 mmol/L (98-107) Carbon Dioxide Level 27 mmol/L (21-32) Anion Gap 10 (6-14) Blood Urea Nitrogen 15 mg/dL (7-20) Creatinine 0.6 mg/dL (0.6-1.0) Estimated GFR (Cockcroft-Gault) 105.0 BUN/Creatinine Ratio 25 (6-20) Glucose Level 128 mg/dL (70-99) Calcium Level 9.2 mg/dL (8.5-10.1) Total Bilirubin 0.4 mg/dL (0.2-1.0) Aspartate Amino Transf (AST/SGOT) 38 U/L (15-37) Alanine Aminotransferase (ALT/SGPT) 52 U/L (14-59) Alkaline Phosphatase 113 U/L (46-116) Total Protein 8.1 g/dL (6.4-8.2) Albumin 3.5 g/dL (3.4-5.0) Albumin/Globulin Ratio 0.8 (1.0-1.7) Problem List Problems Medical Problems: (1) Abdominal pain Status: Acute (2) Appendicitis Status: Acute Assessment/Plan pain is right flank/mid back wbc normal will review with BORIS Sharma MD 09/11/18 0946: SURGICAL PROGRESS NOTE Assessment/Plan pt seen daughter at bedside translates explained risks of l/s lynn including but not limited to bleeding, infection, injury to bowel, liver or bile ducts with resultant need for further surgery, possible open or diarrhea, possible persistent symptoms she will proceed MALENA VERDIN APRN Sep 11, 2018 09:25 BORIS VIDAL MD Sep 11, 2018 09:46
[2018-09-11] MEDS: FAMOTIDINE 20 MG/2 ML VIAL IVP SCH ×2 (09:27→20:49)
[2018-09-11] MEDS ORDERED: IV RINGERS,LACTATED 1000ML 1,000 ML IV SCH (10:14)
[2018-09-11] MEDS ORDERED: PROCHLORPERAZINE 10 MG/2 ML VIAL. IV PRN (10:15)
[2018-09-11] MEDS ORDERED: HYDROmorphone 2 MG/ML VIAL IV PRN ×2 (10:15→16:15)
[2018-09-11] MEDS ORDERED: ONDANSETRON PF 4 MG/2 ML VIAL. IV PRN ×2 (10:15→16:15)
[2018-09-11] MEDS ORDERED: MORPHINE SULFATE 2 MG/ML VIAL. IV PRN (10:15)
[2018-09-11] MEDS ORDERED: LIDOCAINE 1% PF 2 ML VIAL. ID PRN (10:15)
[2018-09-11] MEDS ORDERED: fentaNYL PF VIAL 100 MCG/2 ML VIAL IV PRN (10:15)
--- NOTE | 2018-09-11 10:22 | PDOC ---
PROGRESS NOTES Chief Complaint Chief Complaint Back pain abdominal pain, generous sized appendix Obesity BMI 33 Accel hypertension History of Present Illness History of Present Illness Some abdominal pain Blood pressure remains high Not on any home meds at home New diagnosis of hypertension NM biliary scan pending but plan for laparoscopic cholecystectomy and look at the appendix today Intra-Op discussed with Dtr. PLAN: maintain nothing by mouth Start lisinopril HCTZ combo pill Keep hydralazine when necessary We'll need a PCP to follow up blood pressure on discharge Postop labs tomorrow Vitals Vitals Vital Signs Date Time Temp Pulse Resp B/P (MAP) Pulse Ox O2 Delivery O2 Flow Rate FiO2 09/11/18 07:45 Room Air 09/11/18 07:00 98.0 79 16 145/72 (96) 95 98.0 Physical Exam General: Alert, Oriented X3, Cooperative, No acute distress Heart: Regular rate, Normal S1, Normal S2, No murmurs Abdomen: Soft, Other (ND, NTTP abdomen ) Extremities: No clubbing, No cyanosis, No edema, Normal pulses, No tenderness/ swelling Skin: No rashes, No breakdown, No significant lesion Labs LABS Laboratory Tests Test 09/10/18 22:04 09/11/18 05:18 Glucose (Fingerstick) 190 mg/dL (70-99) White Blood Count 8.9 x10^3/uL (4.0-11.0) Red Blood Count 4.65 x10^6/uL (3.50-5.40) Hemoglobin 13.8 g/dL (12.0-15.5) Hematocrit 41.2 % (36.0-47.0) Mean Corpuscular Volume 89 fL (79-100) Mean Corpuscular Hemoglobin 30 pg (25-35) Mean Corpuscular Hemoglobin Concent 34 g/dL (31-37) Red Cell Distribution Width 14.5 % (11.5-14.5) Platelet Count 290 x10^3/uL (140-400) Neutrophils (%) (Auto) 75 % (31-73) Lymphocytes (%) (Auto) 19 % (24-48) Monocytes (%) (Auto) 6 % (0-9) Eosinophils (%) (Auto) 0 % (0-3) Basophils (%) (Auto) 0 % (0-3) Neutrophils # (Auto) 6.7 x10^3uL (1.8-7.7) Lymphocytes # (Auto) 1.7 x10^3/uL (1.0-4.8) Monocytes # (Auto) 0.5 x10^3/uL (0.0-1.1) Eosinophils # (Auto) 0.0 x10^3/uL (0.0-0.7) Basophils # (Auto) 0.0 x10^3/uL (0.0-0.2) Sodium Level 140 mmol/L (136-145) Potassium Level 3.5 mmol/L (3.5-5.1) Chloride Level 103 mmol/L (98-107) Carbon Dioxide Level 27 mmol/L (21-32) Anion Gap 10 (6-14) Blood Urea Nitrogen 15 mg/dL (7-20) Creatinine 0.6 mg/dL (0.6-1.0) Estimated GFR (Cockcroft-Gault) 105.0 BUN/Creatinine Ratio 25 (6-20) Glucose Level 128 mg/dL (70-99) Calcium Level 9.2 mg/dL (8.5-10.1) Total Bilirubin 0.4 mg/dL (0.2-1.0) Aspartate Amino Transf (AST/SGOT) 38 U/L (15-37) Alanine Aminotransferase (ALT/SGPT) 52 U/L (14-59) Alkaline Phosphatase 113 U/L (46-116) Total Protein 8.1 g/dL (6.4-8.2) Albumin 3.5 g/dL (3.4-5.0) Albumin/Globulin Ratio 0.8 (1.0-1.7) Review of Systems Review of Systems some headache and abdominal pain, the rest of ROS 14 point negative Assessment and Plan Assessmemt and Plan Problems Medical Problems: (1) Abdominal pain Status: Acute (2) Appendicitis Status: Acute Comment Review of Relevant I have reviewed the following items chavo (where applicable) has been applied. Labs Laboratory Tests Test 09/10/18 08:20 09/10/18 08:21 09/10/18 08:50 09/10/18 22:04 Urine Collection Type Void Urine Color Yellow Urine Clarity Clear Urine pH 6.5 Urine Specific [place] 1.015 Urine Protein Negative mg/dL (NEG-TRACE) Urine Glucose (UA) Negative mg/dL (NEG) Urine Ketones (Stick) Negative mg/dL (NEG) Urine Blood Negative (NEG) Urine Nitrite Negative (NEG) Urine Bilirubin Negative (NEG) Urine Urobilinogen Dipstick 0.2 mg/dL (0.2 mg/dL) Urine Leukocyte Esterase Trace (NEG) Urine RBC Occ /HPF (0-2) Urine WBC 1-4 /HPF (0-4) Urine Squamous Epithelial Cells Mod /LPF Urine Bacteria Few /HPF (0-FEW) Urine Mucus Slight /LPF Bedside Urine HCG, Qualitative Hcg negative (Negative) White Blood Count 6.2 x10^3/uL (4.0-11.0) Red Blood Count 4.66 x10^6/uL (3.50-5.40) Hemoglobin 13.8 g/dL (12.0-15.5) Hematocrit 41.5 % (36.0-47.0) Mean Corpuscular Volume 89 fL (79-100) Mean Corpuscular Hemoglobin 30 pg (25-35) Mean Corpuscular Hemoglobin Concent 33 g/dL (31-37) Red Cell Distribution Width 14.2 % (11.5-14.5) Platelet Count 274 x10^3/uL (140-400) Neutrophils (%) (Auto) 53 % (31-73) Lymphocytes (%) (Auto) 36 % (24-48) Monocytes (%) (Auto) 8 % (0-9) Eosinophils (%) (Auto) 2 % (0-3) Basophils (%) (Auto) 1 % (0-3) Neutrophils # (Auto) 3.3 x10^3uL (1.8-7.7) Lymphocytes # (Auto) 2.2 x10^3/uL (1.0-4.8) Monocytes # (Auto) 0.5 x10^3/uL (0.0-1.1) Eosinophils # (Auto) 0.1 x10^3/uL (0.0-0.7) Basophils # (Auto) 0.0 x10^3/uL (0.0-0.2) Sodium Level 141 mmol/L (136-145) Potassium Level 3.5 mmol/L (3.5-5.1) Chloride Level 103 mmol/L (98-107) Carbon Dioxide Level 30 mmol/L (21-32) Anion Gap 8 (6-14) Blood Urea Nitrogen 12 mg/dL (7-20) Creatinine 0.8 mg/dL (0.6-1.0) Estimated GFR (Cockcroft-Gault) 75.3 BUN/Creatinine Ratio 15 (6-20) Glucose Level 124 mg/dL (70-99) Calcium Level 8.8 mg/dL (8.5-10.1) Total Bilirubin 0.4 mg/dL (0.2-1.0) Aspartate Amino Transf (AST/SGOT) 41 U/L (15-37) Alanine Aminotransferase (ALT/SGPT) 49 U/L (14-59) Alkaline Phosphatase 120 U/L (46-116) Total Protein 7.8 g/dL (6.4-8.2) Albumin 3.6 g/dL (3.4-5.0) Albumin/Globulin Ratio 0.9 (1.0-1.7) Lipase 128 U/L (73-393) Glucose (Fingerstick) 190 mg/dL (70-99) Test 09/11/18 05:18 White Blood Count 8.9 x10^3/uL (4.0-11.0) Red Blood Count 4.65 x10^6/uL (3.50-5.40) Hemoglobin 13.8 g/dL (12.0-15.5) Hematocrit 41.2 % (36.0-47.0) Mean Corpuscular Volume 89 fL (79-100) Mean Corpuscular Hemoglobin 30 pg (25-35) Mean Corpuscular Hemoglobin Concent 34 g/dL (31-37) Red Cell Distribution Width 14.5 % (11.5-14.5) Platelet Count 290 x10^3/uL (140-400) Neutrophils (%) (Auto) 75 % (31-73) Lymphocytes (%) (Auto) 19 % (24-48) Monocytes (%) (Auto) 6 % (0-9) Eosinophils (%) (Auto) 0 % (0-3) Basophils (%) (Auto) 0 % (0-3) Neutrophils # (Auto) 6.7 x10^3uL (1.8-7.7) Lymphocytes # (Auto) 1.7 x10^3/uL (1.0-4.8) Monocytes # (Auto) 0.5 x10^3/uL (0.0-1.1) Eosinophils # (Auto) 0.0 x10^3/uL (0.0-0.7) Basophils # (Auto) 0.0 x10^3/uL (0.0-0.2) Sodium Level 140 mmol/L (136-145) Potassium Level 3.5 mmol/L (3.5-5.1) Chloride Level 103 mmol/L (98-107) Carbon Dioxide Level 27 mmol/L (21-32) Anion Gap 10 (6-14) Blood Urea Nitrogen 15 mg/dL (7-20) Creatinine 0.6 mg/dL (0.6-1.0) Estimated GFR (Cockcroft-Gault) 105.0 BUN/Creatinine Ratio 25 (6-20) Glucose Level 128 mg/dL (70-99) Calcium Level 9.2 mg/dL (8.5-10.1) Total Bilirubin 0.4 mg/dL (0.2-1.0) Aspartate Amino Transf (AST/SGOT) 38 U/L (15-37) Alanine Aminotransferase (ALT/SGPT) 52 U/L (14-59) Alkaline Phosphatase 113 U/L (46-116) Total Protein 8.1 g/dL (6.4-8.2) Albumin 3.5 g/dL (3.4-5.0) Albumin/Globulin Ratio 0.8 (1.0-1.7) Laboratory Tests Test 09/10/18 22:04 09/11/18 05:18 Glucose (Fingerstick) 190 mg/dL (70-99) White Blood Count 8.9 x10^3/uL (4.0-11.0) Red Blood Count 4.65 x10^6/uL (3.50-5.40) Hemoglobin 13.8 g/dL (12.0-15.5) Hematocrit 41.2 % (36.0-47.0) Mean Corpuscular Volume 89 fL (79-100) Mean Corpuscular Hemoglobin 30 pg (25-35) Mean Corpuscular Hemoglobin Concent 34 g/dL (31-37) Red Cell Distribution Width 14.5 % (11.5-14.5) Platelet Count 290 x10^3/uL (140-400) Neutrophils (%) (Auto) 75 % (31-73) Lymphocytes (%) (Auto) 19 % (24-48) Monocytes (%) (Auto) 6 % (0-9) Eosinophils (%) (Auto) 0 % (0-3) Basophils (%) (Auto) 0 % (0-3) Neutrophils # (Auto) 6.7 x10^3uL (1.8-7.7) Lymphocytes # (Auto) 1.7 x10^3/uL (1.0-4.8) Monocytes # (Auto) 0.5 x10^3/uL (0.0-1.1) Eosinophils # (Auto) 0.0 x10^3/uL (0.0-0.7) Basophils # (Auto) 0.0 x10^3/uL (0.0-0.2) Sodium Level 140 mmol/L (136-145) Potassium Level 3.5 mmol/L (3.5-5.1) Chloride Level 103 mmol/L (98-107) Carbon Dioxide Level 27 mmol/L (21-32) Anion Gap 10 (6-14) Blood Urea Nitrogen 15 mg/dL (7-20) Creatinine 0.6 mg/dL (0.6-1.0) Estimated GFR (Cockcroft-Gault) 105.0 BUN/Creatinine Ratio 25 (6-20) Glucose Level 128 mg/dL (70-99) Calcium Level 9.2 mg/dL (8.5-10.1) Total Bilirubin 0.4 mg/dL (0.2-1.0) Aspartate Amino Transf (AST/SGOT) 38 U/L (15-37) Alanine Aminotransferase (ALT/SGPT) 52 U/L (14-59) Alkaline Phosphatase 113 U/L (46-116) Total Protein 8.1 g/dL (6.4-8.2) Albumin 3.5 g/dL (3.4-5.0) Albumin/Globulin Ratio 0.8 (1.0-1.7) Medications Current Medications Ondansetron HCl (Zofran) 4 mg 1X ONCE IV Last administered on 09/10/18at 08:53; Start 09/10/18 at 08:30; Stop 09/10/18 at 08:32; Status DC Ketorolac Tromethamine (Toradol 30mg Vial) 30 mg 1X ONCE IV Last administered on 09/10/18at 08:55; Start 09/10/18 at 08:30; Stop 09/10/18 at 08:32; Status DC Ondansetron HCl (Zofran) 4 mg PRN Q8HRS PRN IV NAUSEA/VOMITING; Start 09/10/18 at 10:45; Stop 09/10/18 at 11:10; Status DC Fentanyl Citrate (Fentanyl 2ml Vial) 50 mcg PRN Q1HR PRN IV PAIN Last administered on 09/10/18at 20:17; Start 09/10/18 at 10:45; Stop 09/11/18 at 10:44 Ondansetron HCl (Zofran) 4 mg PRN Q6HRS PRN IV NAUSEA/VOMITING Last administered on 09/10/18at 20:27; Start 09/10/18 at 11:00; Stop 09/11/18 at 10:59 Fentanyl Citrate (Fentanyl 2ml Vial) 25 mcg PRN Q5MIN PRN IV MILD PAIN; Start 09/10/18 at 11:00; Stop 09/11/18 at 10:59 Fentanyl Citrate (Fentanyl 2ml Vial) 50 mcg PRN Q5MIN PRN IV MODERATE TO SEVERE PAIN; Start 09/10/18 at 11:00; Stop 09/11/18 at 10:59 Morphine Sulfate (Morphine Sulfate) 1 mg PRN Q10MIN PRN IV SEVERE PAIN; Start 09/10/18 at 11:00; Stop 09/11/18 at 10:59 Ringer's Solution 1,000 ml @ 100 mls/hr Q10H IV ; Start 09/10/18 at 10:51; Stop 09/10/18 at 22:50; Status DC Hydromorphone HCl (Dilaudid) 0.5 mg PRN Q10MIN PRN IV SEV PAIN, Second choice; Start 09/10/18 at 11:00; Stop 09/11/18 at 10:59 Prochlorperazine Edisylate (Compazine) 5 mg PACU PRN PRN IV NAUSEA, MRX1; Start 09/10/18 at 11:00; Stop 09/11/18 at 10:59 Ondansetron HCl (Zofran) 4 mg PRN Q6HRS PRN IV NAUSEA/VOMITING; Start 09/10/18 at 11:00; Stop 09/11/18 at 10:59; Status UNV Fentanyl Citrate (Fentanyl 2ml Vial) 25 mcg PRN Q5MIN PRN IV MILD PAIN; Start 09/10/18 at 11:00; Stop 09/11/18 at 10:59; Status UNV Fentanyl Citrate (Fentanyl 2ml Vial) 50 mcg PRN Q5MIN PRN IV MODERATE TO SEVERE PAIN; Start 09/10/18 at 11:00; Stop 09/11/18 at 10:59; Status UNV Morphine Sulfate (Morphine Sulfate) 1 mg PRN Q10MIN PRN IV SEVERE PAIN; Start 09/10/18 at 11:00; Stop 09/11/18 at 10:59; Status UNV Ringer's Solution 1,000 ml @ 30 mls/hr Q24H IV ; Start 09/10/18 at 10:51; Stop 09/10/18 at 22:50; Status UNV Hydromorphone HCl (Dilaudid) 0.5 mg PRN Q10MIN PRN IV SEV PAIN, Second choice; Start 09/10/18 at 11:00; Stop 09/11/18 at 10:59; Status UNV Prochlorperazine Edisylate (Compazine) 5 mg PACU PRN PRN IV NAUSEA, MRX1; Start 09/10/18 at 11:00; Stop 09/11/18 at 10:59; Status UNV Ondansetron HCl (Zofran) 4 mg PRN Q6HRS PRN IV NAUSEA/VOMITING; Start 09/10/18 at 11:15 Hydralazine HCl (Apresoline Inj) 10 mg PRN Q4HRS PRN IVP ELEVATED BP, SEE COMMENTS Last administered on 09/10/18at 20:16; Start 09/10/18 at 11:15 Famotidine (Pepcid Vial) 20 mg BID IVP Last administered on 09/11/18at 09:27; Start 09/10/18 at 21:00 Famotidine (Pepcid Vial) 20 mg 1X ONCE IVP Last administered on 09/10/18at 11:30 ; Start 09/10/18 at 11:15; Stop 09/10/18 at 11:16; Status DC Lidocaine (Lidoderm) 1 patch DAILY TD ; Start 09/11/18 at 09:00 Bupivacaine HCl/ Epinephrine Bitart (Sensorcain-Mpf Epi 0.5%-1:995512) 30 ml STK -MED ONCE .ROUTE ; Start 09/10/18 at 11:54; Stop 09/10/18 at 12:54; Status DC Bacitracin 10183 unit/Sodium Chloride 500 ml @ 500 mls/hr 1X ONCE IRR ; Start 09/10/18 at 13:00; Stop 09/10/18 at 13:59; Status DC Hydralazine HCl (Apresoline Inj) 10 mg 1X ONCE IVP Last administered on at 14:20; Start 09/10/18 at 14:15; Stop 09/10/18 at 14:22; Status DC Acetaminophen (Tylenol) 650 mg PRN Q6HRS PRN PO headache Last administered on at 19:36; Start 09/10/18 at 19:30 Cefazolin Sodium/ Dextrose 50 ml @ 100 mls/hr 1X PREOP PRN IV protocol; Start 09/11/18 at 10:30; Stop 09/12/18 at 10:29 Ondansetron HCl (Zofran) 4 mg PRN Q6HRS PRN IV NAUSEA/VOMITING; Start 09/11/18 at 10:15; Stop 09/12/18 at 10:14 Fentanyl Citrate (Fentanyl 2ml Vial) 25 mcg PRN Q5MIN PRN IV MILD PAIN; Start 09/11/18 at 10:15; Stop 09/12/18 at 10:14 Fentanyl Citrate (Fentanyl 2ml Vial) 50 mcg PRN Q5MIN PRN IV MODERATE TO SEVERE PAIN; Start 09/11/18 at 10:15; Stop 09/12/18 at 10:14 Morphine Sulfate (Morphine Sulfate) 1 mg PRN Q10MIN PRN IV SEVERE PAIN; Start 09/11/18 at 10:15; Stop 09/12/18 at 10:14 Ringer's Solution 1,000 ml @ 30 mls/hr Q24H IV ; Start 09/11/18 at 10:14; Stop 09/11/18 at 22:13 Lidocaine HCl (Xylocaine-Mpf 1% 2ml Vial) 2 ml PRN 1X PRN ID PRIOR TO IV START ; Start 09/11/18 at 10:15; Stop 09/12/18 at 10:14 Hydromorphone HCl (Dilaudid) 0.5 mg PRN Q10MIN PRN IV SEV PAIN, Second choice; Start 09/11/18 at 10:15; Stop 09/12/18 at 10:14 Prochlorperazine Edisylate (Compazine) 5 mg PACU PRN PRN IV NAUSEA, MRX1; Start 09/11/18 at 10:15; Stop 09/12/18 at 10:14 Active Scripts Active Cyclobenzaprine Hcl 10 Mg Tablet 10 Mg PO TID Ibuprofen 800 Mg Tablet 800 Mg PO PRN Q6HRS PRN Feosol (Ferrous Sulfate) 325 Mg Tablet 325 Mg PO BID Protonix (Pantoprazole Sodium) 40 Mg Tablet 40 Mg PO DAILYAC Vitals/I & O Vital Sign - Last 24 Hours 09/10/18 09/10/18 09/10/18 09/10/18 10:41 11:11 11:41 11:56 Pulse 56 56 61 60 B/P (MAP) 183/74 (110) 174/72 (106) 191/98 (129) 177/82 (113) Pulse Ox 100 100 100 100 O2 Delivery Room Air Room Air Room Air Room Air 09/10/18 09/10/18 09/10/18 09/10/18 12:11 13:23 14:04 14:20 Pulse 58 66 75 Resp 20 B/P (MAP) 164/71 (102) 210/89 Pulse Ox 100 98 O2 Delivery Room Air Room Air 09/10/18 09/10/18 09/10/18 09/10/18 14:20 14:22 15:56 16:00 Pulse 65 72 84 80 Resp 20 B/P (MAP) 190/87 186/87 175/80 175/80 Pulse Ox 98 09/10/18 09/10/18 09/10/18 09/10/18 16:14 19:00 20:00 20:16 Temp 98.6 98.6 Pulse 87 94 94 Resp 18 B/P (MAP) 152/90 (110) 178/88 (118) 178/88 Pulse Ox 94 O2 Delivery Room Air Room Air 09/10/18 09/10/18 09/10/18 09/11/18 20:17 20:47 23:00 03:00 Temp 98.1 98.7 98.1 98.7 Pulse 95 92 Resp 20 18 18 18 B/P (MAP) 157/93 (114) 123/58 (79) Pulse Ox 97 97 O2 Delivery Room Air Room Air Room Air Room Air 09/11/18 09/11/18 07:00 07:45 Temp 98.0 98.0 Pulse 79 Resp 16 B/P (MAP) 145/72 (96) Pulse Ox 95 O2 Delivery Room Air Room Air Intake and Output 09/10/18 09/10/18 09/11/18 15:00 23:00 07:00 Intake Total 0 ml Output Total 150 ml Balance -150 ml 0 ml VLADIMIR VALERO MD Sep 11, 2018 10:22
[2018-09-11] MEDS: LISINOPRIL 10 MG TABLET PO SCH (11:00)
[2018-09-11] MEDS: hydroCHLOROthiazide 25 MG TABLET PO SCH (11:08)
[2018-09-11] MEDS ORDERED: ceFAZolin 2GM PREMIX 2 GM/50 ML BAG IV ONE (12:00)
[2018-09-11] MEDS ORDERED: SEVOFLURANE 61 TO 120 MINUTES. IH ONE (13:21)
[2018-09-11] MEDS ORDERED: ROCURONIUM 50 MG/5 ML VIAL. ONE ×2 (13:21→15:33)
[2018-09-11] MEDS ORDERED: NEOSTIGMINE METHYLSULFATE 5 MG/5 ML SYRINGE. ONE (13:21)
[2018-09-11] MEDS ORDERED: fentaNYL PF VIAL 100 MCG/2 ML VIAL ONE ×2 (13:21→16:26)
[2018-09-11] MEDS ORDERED: MIDAZOLAM HCL/PF 2 MG/2 ML VIAL. ONE (13:21)
[2018-09-11] MEDS ORDERED: ONDANSETRON PF 4 MG/2 ML VIAL. ONE (13:22)
[2018-09-11] MEDS ORDERED: LIDOCAINE 2% PF 5 ML VIAL. ONE (13:22)
[2018-09-11] MEDS ORDERED: DEXAMETHASONE SOD PHOS 20 MG/5 ML VIAL. ONE (13:22)
[2018-09-11] MEDS ORDERED: PROPOFOL 20 ML IV ONE (13:22)
[2018-09-11] MEDS ORDERED: GLYCOPYRROLATE 1 MG/5 ML VIAL. ONE (13:22)
[2018-09-11] MEDS ORDERED: BUPIVAC MPF-EPI 0.5%-1:200000 30 ML VIAL. ONE (13:24)
[2018-09-11] MEDS ORDERED: IOHEXOL 300 MG/ML 100ML VIAL. ONE (13:24)
[2018-09-11] MEDS ORDERED: SURGICEL HEMOSTAT 4X8 EACH. ONE (13:24)
[2018-09-11] MEDS ORDERED: GLUCAGON,HUMAN RECOMBINANT 1 MG/ML VIAL. ONE (13:24)
--- NOTE | 2018-09-11 13:26 | NUR ---
EDU following for discharge planning. Discussed with RN, pt is from home with son, Kinyarwanda speaking and self pay. EDU attempted to meet with pt to give self pay resources, however pt was being transported down to surgery to have gall bladder removed and possibly appendix too. EDU left self pay resource packet with pt's RN in case pt was to discharge home tonight. EDU plans to meet with pt tomorrow (09/12/18) if pt is still here.
[2018-09-11] MEDS ORDERED: BACITRACIN 50,000 UNIT in IV NORMAL SALINE 500ML BAG 500 ML IRR ONE (14:30)
[2018-09-11] MEDS ORDERED: PHENYLEPHRINE in 0.9% NACL PF 1 MG/10 ML SYRINGE. IV ONE (15:10)
--- NOTE | 2018-09-11 15:40 | RAD ---
Examination: CHOLANGIOGRAM INTRAOPERATIVE History: CHOLANGIOGRAMS IN OR WITH C-ARM, FL TIME =.21 MINUTES Comparison/Correlation: None Findings: Fluoroscopy was utilized for 0.21 minutes. Total of 3 images provided. Right upper quadrant surgical clips are present. Contrast is noted within the common bile duct which is normally distended without persistent suspicious filling defect. Cystic duct remnant is present. Cholecystectomy noted. Circular radiopaque density over the midline of the upper lumbar spine is present. Impression: Cholecystectomy. No extravasation of contrast. No common bile duct stricture, obstruction, or suspicious persistent filling defect. Electronically signed by: Fernando Chun MD (09/11/2018 3:37 PM) [facility]
--- NOTE | 2018-09-11 16:12 | PDOC ---
BRIEF OPERATIVE NOTE Date: Sep 11, 2018 Pre-Op Diagnosis symptomatic cholelithiasis, abnormal appendix Post-Op Diagnosis same Procedure Performed l/s cholecystectomy with cholangiograms, appendectomy Surgeon [employer] Kierra MATIAS Anesthesia Type: General Blood Loss 25cc IV Fluid 1000cc Urine Output 75cc Specimens Obtained GB, appendix Findings normal grams, cystic change appendix Complications none BORIS VIDAL MD Sep 11, 2018 16:11
[2018-09-11] MEDS ORDERED: DEXTROSE 50% 25 GM / 50ML DISP.SYRIN. IV PRN (16:15)
[2018-09-11] MEDS ORDERED: diphenhydrAMINE HCL 25 MG CAPSULE PO PRN (16:15)
[2018-09-11] MEDS ORDERED: oxyCODONE/APAP 5/325 1 TAB TABLET PO PRN (16:15)
[2018-09-11] MEDS ORDERED: 0.9 % SODIUM CHLORIDE 10 ML DISP.SYRIN. IV PRN (16:15)
[2018-09-11] MEDS: fentaNYL PF VIAL 100 MCG/2 ML VIAL IV PRN ×4 (16:30→17:36)
[2018-09-11] MEDS: POTASSIUM CL 20MEQ-0.45% NACL 1,000 ML IV SCH (17:00)
[2018-09-11] MEDS: hydrALAZINE 20 MG/ML VIAL. IVP PRN (17:07)
--- NOTE | 2018-09-11 19:56 | OP ---
DATE OF SURGERY: 09/11/2018 PREOPERATIVE DIAGNOSIS: Symptomatic cholelithiasis and abnormal appendix by CT. POSTOPERATIVE DIAGNOSES: Symptomatic cholelithiasis and abnormal appendix by CT. PROCEDURE: Laparoscopic cholecystectomy with cholangiogram and appendectomy. SURGEON: Surja Vidal MD OIL PAINT SHADER: FLORENCIO Orozco ANESTHESIA: General endotracheal. ESTIMATED BLOOD LOSS: 25 mL. INTRAVENOUS FLUIDS: 1 liter. URINE OUTPUT: 75. INDICATIONS: The patient is a 53-year-old with right flank pain and ultrasound showing a gallstone. She also has an abnormal appendix by CT, brought for cholecystectomy and possible appendectomy. OPERATIVE FINDINGS: The liver was smooth and sharp. The gallbladder was supple. Cholangiograms were normal. The appendix did appear to have a cystic lesion in the mid portion. DESCRIPTION OF PROCEDURE: The patient was brought to the operating suite, given a general endotracheal anesthetic. Mckeon catheter placed to dependent drainage and the abdomen prepped and draped in usual sterile fashion. An infraumbilical incision was made after infiltrating with local anesthetic and a 5 mm Visiport used to safely gain access into the abdominal cavity. Pneumoperitoneum established. Camera inserted. Inspection carried out with results as noted above. With the table in reverse Trendelenburg rolled to the left, the epigastric, midclavicular and lateral ports were placed under direct vision. The gallbladder was retracted superolaterally and the cystic duct and cystic artery were exposed. An anterior cystic artery was intimately adherent to the cystic duct and as such was , doubly clipped and divided. The cystic duct was then clipped on the gallbladder side. Cholangiograms were made and these were normal. In light of this, the catheter was removed. The cystic duct was clipped x 3 and divided taking care to avoid injury or compromise of the common duct. A posterior branch of the cystic artery was similarly clipped and divided and gallbladder freed from the bed and placed in an EndoCatch bag. No evidence of bile leak or bleeding from the fossa was seen. A 19-Bel[place]an round Jose drain was brought through the epigastric port out the lateral port, sewn to the skin with silk stitch and left in the subhepatic space for postoperative drainage. Under direct vision, a suprapubic port was placed and this allowed manipulation of the appendix for removal. Rent created at the base of the appendix and an Endo-BIBI stapler was passed first across the base of the appendix with a tissue load followed by vascular load for the mesoappendix and the appendix placed in an EndoCatch bag. Intra-abdominal pressure decreased to 6 cm of water. No bleeding from the appendiceal stump or mesoappendix was seen. Table returned to level. Gallbladder delivered through the epigastric incision. That incision closed with interrupted 0 Vicryl suture. Again, at 6 cm of water intra-abdominal pressure, no bleeding seen. No bleeding from the drain site or the midclavicular port after its removal. Appendix delivered through the infraumbilical port site, which was then closed with 0 Vicryl. No bleeding seen. Abdomen decompressed, camera removed. Skin incisions closed with subcuticular 4-0 Monocryl. Steri-Strips and sterile dressings applied. Mckeon catheter removed. The patient was awakened from her anesthetic and taken to the recovery room in satisfactory condition. SURAJ VIDAL MD DR: JULIANA/elmira JOB#: [id number] / [id number]
[2018-09-11] MEDS: oxyCODONE/APAP 5/325 1 TAB TABLET PO PRN (20:49)
[2018-09-11] MEDS: DOCUSATE SODIUM 100 MG CAPSULE. PO SCH (20:50)
[2018-09-12] MEDS: POTASSIUM CL 20MEQ-0.45% NACL 1,000 ML IV SCH (00:01)
[2018-09-12 03:00] VITALS: BP 150/71
[2018-09-12 07:00] VITALS: BP 149/75
[2018-09-12 08:33] LABS: BASO % 0 % (0-3); EOS % 0 % (0-3); HEMOGLOBIN 13.7 g/dL (12.0-15.5); LYMPH # 1.6 x10^3/uL (1.0-4.8); LYMPH % 12 % (24-48); MEAN CORPUSCULAR HEMOGLOBIN 30 pg (25-35); MEAN CORPUSCULAR HGB CONC 34 g/dL (31-37); MEAN CORPUSCULAR VOLUME 90 fL (79-100); MONO # 0.7 x10^3/uL (0.0-1.1); MONO % 6 % (0-9); NEUT # 10.4 x10^3uL (1.8-7.7); NEUT % 82 % (31-73); PLATELET COUNT 294 x10^3/uL (140-400); RED BLOOD COUNT 4.57 x10^6/uL (3.50-5.40); RED CELL DISTRIBUTION WIDTH 14.5 % (11.5-14.5); WHITE BLOOD COUNT 12.7 x10^3/uL (4.0-11.0)
[2018-09-12 08:45] LABS: CALCIUM 9.4 mg/dL (8.5-10.1); CREATININE 0.8 mg/dL (0.6-1.0); GFR 75.3
[2018-09-12] MEDS: FAMOTIDINE 20 MG/2 ML VIAL IVP SCH (09:00)
[2018-09-12] MEDS ORDERED: ENOXAPARIN 40 MG/0.4 ML SYRINGE. SQ SCH (09:00)
--- NOTE | 2018-09-12 09:55 | PDOC ---
PROGRESS NOTES Chief Complaint Chief Complaint l/s cholecystectomy with cholangiograms, appendectomy HTN - new dx History of Present Illness History of Present Illness POD #1 1 MERCEDES drain with minimal drainage Some postop soreness Positive flatus ON GI soft diet with no emesis Blood pressure much better 150 systolic Plan: await GS Rounds Lisinopril HCTZ combo pill on chart along with pain medicine Discussed with family members at bedside who translates Vitals Vitals Vital Signs Date Time Temp Pulse Resp B/P (MAP) Pulse Ox O2 Delivery O2 Flow Rate FiO2 09/12/18 07:00 98.5 70 18 149/75 (99) 96 Room Air 98.5 09/11/18 20:49 2.0 Physical Exam General: Alert, Oriented X3, Cooperative, No acute distress Heart: Regular rate, Normal S1, Normal S2, No murmurs Abdomen: Soft, Other (ND, NTTP abdomen ) Extremities: No clubbing, No cyanosis, No edema, Normal pulses, No tenderness/ swelling Skin: No rashes, No breakdown, No significant lesion Labs LABS Laboratory Tests Test 09/12/18 07:38 White Blood Count 12.7 x10^3/uL (4.0-11.0) Red Blood Count 4.57 x10^6/uL (3.50-5.40) Hemoglobin 13.7 g/dL (12.0-15.5) Hematocrit 41.0 % (36.0-47.0) Mean Corpuscular Volume 90 fL (79-100) Mean Corpuscular Hemoglobin 30 pg (25-35) Mean Corpuscular Hemoglobin Concent 34 g/dL (31-37) Red Cell Distribution Width 14.5 % (11.5-14.5) Platelet Count 294 x10^3/uL (140-400) Neutrophils (%) (Auto) 82 % (31-73) Lymphocytes (%) (Auto) 12 % (24-48) Monocytes (%) (Auto) 6 % (0-9) Eosinophils (%) (Auto) 0 % (0-3) Basophils (%) (Auto) 0 % (0-3) Neutrophils # (Auto) 10.4 x10^3uL (1.8-7.7) Lymphocytes # (Auto) 1.6 x10^3/uL (1.0-4.8) Monocytes # (Auto) 0.7 x10^3/uL (0.0-1.1) Eosinophils # (Auto) 0.0 x10^3/uL (0.0-0.7) Basophils # (Auto) 0.0 x10^3/uL (0.0-0.2) Sodium Level 140 mmol/L (136-145) Potassium Level 4.0 mmol/L (3.5-5.1) Chloride Level 102 mmol/L (98-107) Carbon Dioxide Level 27 mmol/L (21-32) Anion Gap 11 (6-14) Blood Urea Nitrogen 13 mg/dL (7-20) Creatinine 0.8 mg/dL (0.6-1.0) Estimated GFR (Cockcroft-Gault) 75.3 Glucose Level 142 mg/dL (70-99) Calcium Level 9.4 mg/dL (8.5-10.1) Review of Systems Review of Systems post op soreness otherwise the rest of ROS negative Assessment and Plan Assessmemt and Plan Problems Medical Problems: (1) Abdominal pain Status: Acute (2) Appendicitis Status: Acute Comment Review of Relevant I have reviewed the following items chavo (where applicable) has been applied. Labs Laboratory Tests Test 09/10/18 22:04 09/11/18 05:18 09/12/18 07:38 Glucose (Fingerstick) 190 mg/dL (70-99) White Blood Count 8.9 x10^3/uL (4.0-11.0) 12.7 x10^3/uL (4.0-11.0) Red Blood Count 4.65 x10^6/uL (3.50-5.40) 4.57 x10^6/uL (3.50-5.40) Hemoglobin 13.8 g/dL (12.0-15.5) 13.7 g/dL (12.0-15.5) Hematocrit 41.2 % (36.0-47.0) 41.0 % (36.0-47.0) Mean Corpuscular Volume 89 fL (79-100) 90 fL (79-100) Mean Corpuscular Hemoglobin 30 pg (25-35) 30 pg (25-35) Mean Corpuscular Hemoglobin Concent 34 g/dL (31-37) 34 g/dL (31-37) Red Cell Distribution Width 14.5 % (11.5-14.5) 14.5 % (11.5-14.5) Platelet Count 290 x10^3/uL (140-400) 294 x10^3/uL (140-400) Neutrophils (%) (Auto) 75 % (31-73) 82 % (31-73) Lymphocytes (%) (Auto) 19 % (24-48) 12 % (24-48) Monocytes (%) (Auto) 6 % (0-9) 6 % (0-9) Eosinophils (%) (Auto) 0 % (0-3) 0 % (0-3) Basophils (%) (Auto) 0 % (0-3) 0 % (0-3) Neutrophils # (Auto) 6.7 x10^3uL (1.8-7.7) 10.4 x10^3uL (1.8-7.7) Lymphocytes # (Auto) 1.7 x10^3/uL (1.0-4.8) 1.6 x10^3/uL (1.0-4.8) Monocytes # (Auto) 0.5 x10^3/uL (0.0-1.1) 0.7 x10^3/uL (0.0-1.1) Eosinophils # (Auto) 0.0 x10^3/uL (0.0-0.7) 0.0 x10^3/uL (0.0-0.7) Basophils # (Auto) 0.0 x10^3/uL (0.0-0.2) 0.0 x10^3/uL (0.0-0.2) Sodium Level 140 mmol/L (136-145) 140 mmol/L (136-145) Potassium Level 3.5 mmol/L (3.5-5.1) 4.0 mmol/L (3.5-5.1) Chloride Level 103 mmol/L (98-107) 102 mmol/L (98-107) Carbon Dioxide Level 27 mmol/L (21-32) 27 mmol/L (21-32) Anion Gap 10 (6-14) 11 (6-14) Blood Urea Nitrogen 15 mg/dL (7-20) 13 mg/dL (7-20) Creatinine 0.6 mg/dL (0.6-1.0) 0.8 mg/dL (0.6-1.0) Estimated GFR (Cockcroft-Gault) 105.0 75.3 BUN/Creatinine Ratio 25 (6-20) Glucose Level 128 mg/dL (70-99) 142 mg/dL (70-99) Calcium Level 9.2 mg/dL (8.5-10.1) 9.4 mg/dL (8.5-10.1) Total Bilirubin 0.4 mg/dL (0.2-1.0) Aspartate Amino Transf (AST/SGOT) 38 U/L (15-37) Alanine Aminotransferase (ALT/SGPT) 52 U/L (14-59) Alkaline Phosphatase 113 U/L (46-116) Total Protein 8.1 g/dL (6.4-8.2) Albumin 3.5 g/dL (3.4-5.0) Albumin/Globulin Ratio 0.8 (1.0-1.7) Laboratory Tests Test 09/12/18 07:38 White Blood Count 12.7 x10^3/uL (4.0-11.0) Red Blood Count 4.57 x10^6/uL (3.50-5.40) Hemoglobin 13.7 g/dL (12.0-15.5) Hematocrit 41.0 % (36.0-47.0) Mean Corpuscular Volume 90 fL (79-100) Mean Corpuscular Hemoglobin 30 pg (25-35) Mean Corpuscular Hemoglobin Concent 34 g/dL (31-37) Red Cell Distribution Width 14.5 % (11.5-14.5) Platelet Count 294 x10^3/uL (140-400) Neutrophils (%) (Auto) 82 % (31-73) Lymphocytes (%) (Auto) 12 % (24-48) Monocytes (%) (Auto) 6 % (0-9) Eosinophils (%) (Auto) 0 % (0-3) Basophils (%) (Auto) 0 % (0-3) Neutrophils # (Auto) 10.4 x10^3uL (1.8-7.7) Lymphocytes # (Auto) 1.6 x10^3/uL (1.0-4.8) Monocytes # (Auto) 0.7 x10^3/uL (0.0-1.1) Eosinophils # (Auto) 0.0 x10^3/uL (0.0-0.7) Basophils # (Auto) 0.0 x10^3/uL (0.0-0.2) Sodium Level 140 mmol/L (136-145) Potassium Level 4.0 mmol/L (3.5-5.1) Chloride Level 102 mmol/L (98-107) Carbon Dioxide Level 27 mmol/L (21-32) Anion Gap 11 (6-14) Blood Urea Nitrogen 13 mg/dL (7-20) Creatinine 0.8 mg/dL (0.6-1.0) Estimated GFR (Cockcroft-Gault) 75.3 Glucose Level 142 mg/dL (70-99) Calcium Level 9.4 mg/dL (8.5-10.1) Medications Current Medications Ondansetron HCl (Zofran) 4 mg 1X ONCE IV Last administered on 09/10/18at 08:53; Start 09/10/18 at 08:30; Stop 09/10/18 at 08:32; Status DC Ketorolac Tromethamine (Toradol 30mg Vial) 30 mg 1X ONCE IV Last administered on 09/10/18at 08:55; Start 09/10/18 at 08:30; Stop 09/10/18 at 08:32; Status DC Ondansetron HCl (Zofran) 4 mg PRN Q8HRS PRN IV NAUSEA/VOMITING; Start 09/10/18 at 10:45; Stop 09/10/18 at 11:10; Status DC Fentanyl Citrate (Fentanyl 2ml Vial) 50 mcg PRN Q1HR PRN IV PAIN Last administered on 09/10/18at 20:17; Start 09/10/18 at 10:45; Stop 09/11/18 at 10:44; Status DC Ondansetron HCl (Zofran) 4 mg PRN Q6HRS PRN IV NAUSEA/VOMITING Last administered on 09/10/18at 20:27; Start 09/10/18 at 11:00; Stop 09/11/18 at 10:59; Status DC Fentanyl Citrate (Fentanyl 2ml Vial) 25 mcg PRN Q5MIN PRN IV MILD PAIN; Start 09/10/18 at 11:00; Stop 09/11/18 at 10:59; Status DC Fentanyl Citrate (Fentanyl 2ml Vial) 50 mcg PRN Q5MIN PRN IV MODERATE TO SEVERE PAIN; Start 09/10/18 at 11:00; Stop 09/11/18 at 10:59; Status DC Morphine Sulfate (Morphine Sulfate) 1 mg PRN Q10MIN PRN IV SEVERE PAIN; Start 09/10/18 at 11:00; Stop 09/11/18 at 10:59; Status DC Ringer's Solution 1,000 ml @ 100 mls/hr Q10H IV ; Start 09/10/18 at 10:51; Stop 09/10/18 at 22:50; Status DC Hydromorphone HCl (Dilaudid) 0.5 mg PRN Q10MIN PRN IV SEV PAIN, Second choice; Start 09/10/18 at 11:00; Stop 09/11/18 at 10:59; Status DC Prochlorperazine Edisylate (Compazine) 5 mg PACU PRN PRN IV NAUSEA, MRX1; Start 09/10/18 at 11:00; Stop 09/11/18 at 10:59; Status DC Ondansetron HCl (Zofran) 4 mg PRN Q6HRS PRN IV NAUSEA/VOMITING; Start 09/10/18 at 11:00; Stop 09/11/18 at 10:59; Status UNV Fentanyl Citrate (Fentanyl 2ml Vial) 25 mcg PRN Q5MIN PRN IV MILD PAIN; Start 09/10/18 at 11:00; Stop 09/11/18 at 10:59; Status UNV Fentanyl Citrate (Fentanyl 2ml Vial) 50 mcg PRN Q5MIN PRN IV MODERATE TO SEVERE PAIN; Start 09/10/18 at 11:00; Stop 09/11/18 at 10:59; Status UNV Morphine Sulfate (Morphine Sulfate) 1 mg PRN Q10MIN PRN IV SEVERE PAIN; Start 09/10/18 at 11:00; Stop 09/11/18 at 10:59; Status UNV Ringer's Solution 1,000 ml @ 30 mls/hr Q24H IV ; Start 09/10/18 at 10:51; Stop 09/10/18 at 22:50; Status UNV Hydromorphone HCl (Dilaudid) 0.5 mg PRN Q10MIN PRN IV SEV PAIN, Second choice; Start 09/10/18 at 11:00; Stop 09/11/18 at 10:59; Status UNV Prochlorperazine Edisylate (Compazine) 5 mg PACU PRN PRN IV NAUSEA, MRX1; Start 09/10/18 at 11:00; Stop 09/11/18 at 10:59; Status UNV Ondansetron HCl (Zofran) 4 mg PRN Q6HRS PRN IV NAUSEA/VOMITING; Start 09/10/18 at 11:15 Hydralazine HCl (Apresoline Inj) 10 mg PRN Q4HRS PRN IVP ELEVATED BP, SEE COMMENTS Last administered on 09/11/18at 17:07; Start 09/10/18 at 11:15 Famotidine (Pepcid Vial) 20 mg BID IVP Last administered on 09/11/18at 20:49; Start 09/10/18 at 21:00 Famotidine (Pepcid Vial) 20 mg 1X ONCE IVP Last administered on 09/10/18at 11:30 ; Start 09/10/18 at 11:15; Stop 09/10/18 at 11:16; Status DC Lidocaine (Lidoderm) 1 patch DAILY TD ; Start 09/11/18 at 09:00 Bupivacaine HCl/ Epinephrine Bitart (Sensorcain-Mpf Epi 0.5%-1:101919) 30 ml STK -MED ONCE .ROUTE ; Start 09/10/18 at 11:54; Stop 09/10/18 at 12:54; Status DC Bacitracin 06125 unit/Sodium Chloride 500 ml @ 500 mls/hr 1X ONCE IRR ; Start 09/10/18 at 13:00; Stop 09/10/18 at 13:59; Status DC Hydralazine HCl (Apresoline Inj) 10 mg 1X ONCE IVP Last administered on at 14:20; Start 09/10/18 at 14:15; Stop 09/10/18 at 14:22; Status DC Acetaminophen (Tylenol) 650 mg PRN Q6HRS PRN PO headache Last administered on at 19:36; Start 09/10/18 at 19:30 Cefazolin Sodium/ Dextrose 50 ml @ 100 mls/hr 1X PREOP PRN IV protocol; Start 09/11/18 at 10:30; Stop 09/12/18 at 10:29 Ondansetron HCl (Zofran) 4 mg PRN Q6HRS PRN IV NAUSEA/VOMITING; Start 09/11/18 at 10:15; Stop 09/12/18 at 10:14 Fentanyl Citrate (Fentanyl 2ml Vial) 25 mcg PRN Q5MIN PRN IV MILD PAIN; Start 09/11/18 at 10:15; Stop 09/12/18 at 10:14 Fentanyl Citrate (Fentanyl 2ml Vial) 50 mcg PRN Q5MIN PRN IV MODERATE TO SEVERE PAIN Last administered on 09/11/18at 17:36; Start 09/11/18 at 10:15; Stop at 10:14 Morphine Sulfate (Morphine Sulfate) 1 mg PRN Q10MIN PRN IV SEVERE PAIN; Start 09/11/18 at 10:15; Stop 09/12/18 at 10:14 Ringer's Solution 1,000 ml @ 30 mls/hr Q24H IV ; Start 09/11/18 at 10:14; Stop 09/11/18 at 22:13; Status DC Lidocaine HCl (Xylocaine-Mpf 1% 2ml Vial) 2 ml PRN 1X PRN ID PRIOR TO IV START ; Start 09/11/18 at 10:15; Stop 09/12/18 at 10:14 Hydromorphone HCl (Dilaudid) 0.5 mg PRN Q10MIN PRN IV SEV PAIN, Second choice; Start 09/11/18 at 10:15; Stop 09/12/18 at 10:14 Prochlorperazine Edisylate (Compazine) 5 mg PACU PRN PRN IV NAUSEA, MRX1 Last administered on 09/11/18at 16:30; Start 09/11/18 at 10:15; Stop 09/12/18 at 10:14 Lisinopril (Prinivil) 10 mg DAILY PO ; Start 09/11/18 at 11:00 Hydrochlorothiazide (Hydrodiuril) 25 mg DAILY PO ; Start 09/11/18 at 11:00 Sevoflurane (Ultane) 60 ml STK-MED ONCE IH ; Start 09/11/18 at 13:21; Stop at 13:22; Status DC Rocuronium Dodge (Zemuron) 50 mg STK-MED ONCE .ROUTE ; Start 09/11/18 at 13:21 ; Stop 09/11/18 at 13:22; Status DC Fentanyl Citrate (Fentanyl 2ml Vial) 100 mcg STK-MED ONCE .ROUTE ; Start at 13:21; Stop 09/11/18 at 13:22; Status DC Neostigmine Methylsulfate (Neostigmine Methylsulfate) 5 mg STK-MED ONCE .ROUTE ; Start 09/11/18 at 13:21; Stop 09/11/18 at 13:22; Status DC Midazolam HCl (Versed) 2 mg STK-MED ONCE .ROUTE ; Start 09/11/18 at 13:21; Stop 09/11/18 at 13:22; Status DC Glycopyrrolate (Robinul) 1 mg STK-MED ONCE .ROUTE ; Start 09/11/18 at 13:22; Stop 09/11/18 at 13:23; Status DC Ondansetron HCl (Zofran) 4 mg STK-MED ONCE .ROUTE ; Start 09/11/18 at 13:22; Stop 09/11/18 at 13:23; Status DC Dexamethasone Sodium Phosphate (Decadron) 20 mg STK-MED ONCE .ROUTE ; Start 09/11 at 13:22; Stop 09/11/18 at 13:23; Status DC Propofol 20 ml @ As Directed STK-MED ONCE IV ; Start 09/11/18 at 13:22; Stop 09/11 at 13:23; Status DC Lidocaine HCl (Lidocaine Pf 2% Vial) 5 ml STK-MED ONCE .ROUTE ; Start 09/11/18 at 13:22; Stop 09/11/18 at 13:23; Status DC Bupivacaine HCl/ Epinephrine Bitart (Sensorcain-Mpf Epi 0.5%-1:525658) 30 ml STK -MED ONCE .ROUTE Last administered on 09/11/18at 15:11; Start 09/11/18 at 13:24; Stop 09/11/18 at 14:24; Status DC Glucagon (Glucagen) 1 mg STK-MED ONCE .ROUTE ; Start 09/11/18 at 13:24; Stop 09/11 at 14:24; Status DC Iohexol (Omnipaque 300 Mg/ml) 100 ml STK-MED ONCE .ROUTE Last administered on at 15:12; Start 09/11/18 at 13:24; Stop 09/11/18 at 14:24; Status DC Cellulose (Surgicel Hemostat 4x8) 1 each STK-MED ONCE .ROUTE ; Start 09/11/18 at 13:24; Stop 09/11/18 at 14:24; Status DC Bacitracin 76942 unit/Sodium Chloride 500 ml @ 500 mls/hr 1X ONCE IRR ; Start 09/11/18 at 14:30; Stop 09/11/18 at 15:29; Status DC Phenylephrine HCl (PHENYLEPHRINE in 0.9% NACL PF) 1 mg STK-MED ONCE IV ; Start 09/11/18 at 15:10; Stop 09/11/18 at 15:11; Status DC Rocuronium Dodge (Zemuron) 50 mg STK-MED ONCE .ROUTE ; Start 09/11/18 at 15:33 ; Stop 09/11/18 at 15:34; Status DC Diphenhydramine HCl (Benadryl) 25 mg PRN Q6HRS PRN PO ITCHING; Start 09/11/18 at 16:15 Enoxaparin Sodium (Lovenox 40mg Syringe) 40 mg Q24H SQ ; Start 09/12/18 at 09:00 Sodium Chloride (Normal Saline Flush) 3 ml QSHIFT PRN IV AFTER MEDS AND BLOOD DRAWS; Start 09/11/18 at 16:15 Potassium Chloride/Sodium Chloride 1,000 ml @ 100 mls/hr Q10H IV Last administered on 09/12/18at 00:01; Start 09/11/18 at 17:00 Dextrose (Dextrose 50%-Water Syringe) 12.5 gm PRN Q15MIN PRN IV SEE COMMENTS; Start 09/11/18 at 16:15 Oxycodone/ Acetaminophen (Percocet 5/325) 1 tab PRN Q4HRS PRN PO MILD PAIN, 1ST CHOICE Last administered on 09/11/18at 20:49; Start 09/11/18 at 16:15 Oxycodone/ Acetaminophen (Percocet 5/325) 2 tab PRN Q4HRS PRN PO MODERATE PAIN , SEVERE PAIN; Start 09/11/18 at 16:15 Hydromorphone HCl (Dilaudid) 1 mg PRN Q3HRS PRN IV PAIN; Start 09/11/18 at 16:15 Docusate Sodium (Colace) 100 mg BID PO Last administered on 09/11/18at 20:50; Start 09/11/18 at 21:00 Ondansetron HCl (Zofran) 4 mg PRN Q6HRS PRN IV NAUESA, 1ST CHOICE; Start at 16:15 Fentanyl Citrate (Fentanyl 2ml Vial) 100 mcg STK-MED ONCE .ROUTE ; Start at 16:26; Stop 09/11/18 at 16:27; Status DC Active Scripts Active Cyclobenzaprine Hcl 10 Mg Tablet 10 Mg PO TID Ibuprofen 800 Mg Tablet 800 Mg PO PRN Q6HRS PRN Feosol (Ferrous Sulfate) 325 Mg Tablet 325 Mg PO BID Protonix (Pantoprazole Sodium) 40 Mg Tablet 40 Mg PO DAILYAC Vitals/I & O Vital Sign - Last 24 Hours 09/11/18 09/11/18 09/11/18 09/11/18 11:00 11:00 13:35 16:13 Temp 98.3 98.3 98.3 98.3 Pulse 79 78 88 Resp 16 16 B/P (MAP) 145/72 132/69 (90) 170/80 Pulse Ox 98 98 O2 Delivery Room Air Room Air Mask O2 Flow Rate 8 09/11/18 09/11/18 09/11/18 09/11/18 16:13 16:30 16:30 16:40 Temp 98.4 98.4 98.4 98.4 Pulse 87 70 Resp 20 20 18 18 B/P (MAP) 181/78 154/57 Pulse Ox 100 100 100 98 O2 Delivery Simple Mask Simple Mask Simple Mask Simple Mask O2 Flow Rate 8 8.0 8.0 5.0 09/11/18 09/11/18 09/11/18 09/11/18 16:45 17:00 17:07 17:12 Temp 98.4 98.4 98.4 98.4 Pulse 62 62 69 Resp 18 12 22 B/P (MAP) 172/88 181/82 181/82 Pulse Ox 98 100 100 O2 Delivery Nasal Cannula Nasal Cannula Nasal Cannula O2 Flow Rate 2.0 2.0 2.0 09/11/18 09/11/18 09/11/18 09/11/18 17:15 17:28 17:36 17:55 Temp 98.4 98.4 98.4 98.4 Pulse 80 87 Resp 16 13 14 B/P (MAP) 177/78 178/77 Pulse Ox 100 100 2 2 O2 Delivery Nasal Cannula Nasal Cannula Nasal Cannula O2 Flow Rate 2.0 2.0 09/11/18 09/11/18 09/11/18 09/11/18 18:00 18:15 18:17 19:00 Temp 98.5 98.5 Pulse 90 99 Resp 18 B/P (MAP) 148/73 (98) 147/ 124/79 (94) Pulse Ox 100 100 O2 Delivery Nasal Cannula Nasal Cannula O2 Flow Rate 2.0 2.0 09/11/18 09/11/18 09/11/18 09/11/18 20:00 20:00 20:49 21:49 Pulse 107 Resp 18 18 16 B/P (MAP) 145/70 (95) Pulse Ox 95 100 O2 Delivery Room Air Room Air Room Air Room Air O2 Flow Rate 2.0 09/11/18 09/12/18 09/12/18 23:00 03:00 07:00 Temp 98.5 98.7 98.5 98.5 98.7 98.5 Pulse 94 77 70 Resp 18 18 18 B/P (MAP) 157/76 (103) 150/71 (97) 149/75 (99) Pulse Ox 93 95 96 O2 Delivery Room Air Room Air Room Air Intake and Output 09/11/18 09/11/18 09/12/18 15:00 23:00 07:00 Intake Total 1150 ml Output Total 175 ml 30 ml Balance 975 ml -30 ml VLADIMIR VALERO MD Sep 12, 2018 09:55
[2018-09-12] MEDS ORDERED: LISI10TA2 PO (09:56)
[2018-09-12] MEDS ORDERED: HYDR-2145 PO (09:56)
[2018-09-12] MEDS ORDERED: OXYC1TAB15 PO (09:56)
[2018-09-12] MEDS ORDERED: AMOX1TAB10 PO (09:56)
[2018-09-12] MEDS: LIDOCAINE (700MG/PATCH) PATCH. TD SCH (10:02)
[2018-09-12] MEDS: DOCUSATE SODIUM 100 MG CAPSULE. PO SCH (10:03)
[2018-09-12] MEDS: hydroCHLOROthiazide 25 MG TABLET PO SCH (10:04)
[2018-09-12] MEDS: LISINOPRIL 10 MG TABLET PO SCH (10:04)
[2018-09-12] MEDS: oxyCODONE/APAP 5/325 1 TAB TABLET PO PRN ×2 (10:23→13:08)
[2018-09-12] MEDS ORDERED: AMOXICILLIN/K CLAV 500/125MG TABLET. PO SCH (10:30)
[2018-09-12 11:00] VITALS: BP 136/56
--- NOTE | 2018-09-12 11:20 | NUR ---
SW following for discharge planning. Discussed with RN, pt had surgery yesterday. SW met with pt to give self pay resource packet, pt had questions about paying her bill, SW contacted Shabana Barnes to have her meet with pt. Pt most likely discharging home today. No further SW needs at this time.
--- NOTE | 2018-09-12 11:25 | DISCH ---
DISCHARGE INSTRUCTIONS Condition on Discharge Condition on Discharge: Stable Activity After Discharge Activity Instructions for Disc: Activity as tolerated, Avoid exertion Lifting Instructions after Dis: No heavy lifting Driving Instructions after Dis: Do not drive Diet after Discharge Diet after Discharge: Regular Wound Incision Care Other wound/incision instructi: may shower Contacting the DRAc after DC Call your doctor for: Concerns you may have Follow-Up Follow Up With: Yair 09/21 BORIS VIDLA MD Sep 12, 2018 11:25
--- NOTE | 2018-09-12 13:31 | RAD ---
HEPATOBILIARY SCAN WITH EJECTION FRACTION 09/12/2018 1:28 PM History: GALL STONE SEEN ON CT. Procedure: Serial static images are obtained of the liver and biliary system in the frontal projection following IV administration of 5.5 mCi of Technetium 99m Choletec. . Findings: There is prompt hepatic clearance of tracer from the blood pool. There is homogeneous distribution throughout the liver. The gallbladder ejection fraction measures emptying of radiotracer into the gallbladder and biliary tree is seen. Emptying of the small bowel also noted IMPRESSION: The cystic duct and common bile duct are patent. Negative for acute cholecystitis. Electronically signed by: Daniel Benjamin MD (09/12/2018 1:28 PM) [id number]
--- NOTE | 2018-09-12 17:01 | NUR ---
Pt discharged from unit via wheelchair. Family member transported Pt from hospital to home. Pt was given instructions on wound care in Uzbek. Client was given discharge instructions and education on medication. Nurse answered all questions that Pt had. Pt verbalized understanding of all instructions given.
--- NOTE | 2018-09-13 17:07 | PATHOLOGY ---
[facility] Accession Number: [id number] . 01 Material submitted: . PART A: gallbladder - GALLBLADDER WITH CONTENTS PART B: appendix - APPENDIX . 01 Clinical history: . Right flank/mid back pain, appendicitis . 02 Diagnosis: A. Gallbladder, laparoscopic cholecystectomy: - Cholelithiasis. - Cholesterolosis. - Chronic cholecystitis. . B. 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 (JPM:pit 09/13/2018) [facility]/09/13/2018 . 02 Comment: There is no evidence of malignancy. (JPM:[facility] 09/13/2018) . 02 Electronically signed: . José Miguel Vasques MD, Pathologist NPI- [id number] . 01 Gross description: . A. The specimen is received in formalin, labeled "Esquivelmoreno, Radha, gallbladder with contents" and consists of an intact green and shiny gallbladder measuring 8.2 cm in length and up to 3.0 cm in diameter. The margin is inked black. Opening reveals a lumen filled with tenacious green bile and a single guillen-brown oval calculus measuring 2.0 x 2.0 cm which grossly includes the neck aspect. The mucosa is green with yellow highlights and an average wall thickness of 0.1 cm. No masses are identified. [employer] sections are submitted in A1. . B. The specimen is received in formalin, labeled "Esquivelmoreno, Radha, appendix" and consists of an appendix measuring 5.8 cm in length and ranging from 0.4-1.0 cm in diameter with mesoappendix measuring up to 3.2 cm thick. The margin is closed with a line of meagan and inked black. The serosa is guillen-brown with hemorrhage. Sectioning reveals a pinpoint and partially hemorrhagic lumen with no discrete fecaliths or mucosal masses. [employer] sections are submitted in B1. (SDY; 09/12/2018) SYU/SYU . 02 Pathologist provided ICD-10: K80.10, K82.4, K38.8 . 02 CPT . 786954, 839625 Specimen Comment: A courtesy copy of this report has been sent to Specimen Comment: [phone], , . Specimen Comment: Report sent to ,DR VALERO / DR HALE Performed at: 01 [facility] [address], [place] [id number] MD Lester Chakraborty MD Phone: [phone] Performed at: 02 [facility] [address] [place], [place] [id number] MD José Miguel Vasques MD Phone: [phone]
--- NOTE | 2018-10-12 13:17 | PDOC3 ---
Discharge Summary Visit Information Date of Admission: Sep 10, 2018 Date of Discharge: Sep 12, 2018 Final Diagnosis Problems Medical Problems: (1) Abdominal pain Status: Acute (2) Appendicitis Status: Acute Brief Hospital Course Allergies Allergies Coded Allergies Type Severity Reaction Last Updated Verified No Known Drug Allergies 11/26/14 No Brief Hospital Course Ms. Fair is a 53 old female who presented with abdominal pain Discharge Information Condition at Discharge: Improved Follow Up: As Needed Disposition/Orders: D/C to Home Scheduled Amoxicillin/Potassium Clav (Amox Tr-K Clv 500-125 Mg Tab) 1 Each Tablet, 1 TAB PO BID for post appy MDD 1, #14 Prescribed by: VLADIMIR VALERO on 09/12/18 0956 Cyclobenzaprine Hcl (Cyclobenzaprine Hcl) 10 Mg Tablet, 10 MG PO TID, #15 Prescribed by: JEREMIAH MIRANDA D.O. on 08/29/16 1922 Ferrous Sulfate (Feosol) 325 Mg Tablet, 325 MG PO BID, #60 Prescribed by: GYPSY ABAD on 08/04/14 1334 Hydrochlorothiazide (Hydrochlorothiazide Tablet ) 25 Mg Tablet, 25 MG PO DAILY for htn MDD 1 for 30 Days, #30 Prescribed by: VLADIMIR VALERO on 09/12/18 0956 Lisinopril (Lisinopril) 10 Mg Tablet, 10 MG PO DAILY for htn MDD 1, #30 Prescribed by: VLADIMIR VALERO on 09/12/18 0956 Pantoprazole Sodium (Protonix) 40 Mg Tablet, 40 MG PO DAILYAC, #30 Prescribed by: GYPSY ABAD on 08/04/14 1334 Scheduled PRN Ibuprofen (Ibuprofen) 800 Mg Tablet, 800 MG PO PRN Q6HRS PRN for INFLAMMATION, #20 Prescribed by: JEREMIAH MIARNDA D.O. on 08/29/16 1922 Oxycodone/Apap 5-325 (Percocet 5-325 Mg Tablet ) 1 Each Tablet, 2 TAB PO PRN Q4HRS PRN for MODERATE PAIN, SEVERE PAIN MDD 1, #30 Prescribed by: VLADIMIR VALERO on 09/12/18 0956 BORIS VIDAL MD October 12, 2018 13:17
== END 2018-09-12 15:30 | disposition home or self-care (01) | DRG 419 ==
LOC: ER 08:07 → 4 NORTH 10:11
PROVIDERS: ADMIT Internal Medicine; ATTEND Internal Medicine
PROC: 0DTJ4ZZ Resection of Appendix, Percutaneous Endoscopic Approach (ICD-10-PCS; 2018-09-11)
PROC: BF101ZZ Fluoroscopy of Bile Ducts using Low Osmolar Contrast (ICD-10-PCS; 2018-09-11)
PROC: 0FT44ZZ Resection of Gallbladder, Percutaneous Endoscopic Approach (ICD-10-PCS; principal; 2018-09-11 14:45)
DX: K80.20 Calculus of gallbladder without cholecystitis without obstruction (principal); K37 Unspecified appendicitis; E66.9 Obesity, unspecified; I10 Essential (primary) hypertension; K59.00 Constipation, unspecified; Z68.33 Body mass index [BMI] 33.0-33.9, adult; Z79.899 Other long term (current) drug therapy
CPT/HCPCS: 36415; 74176; 74300; 78226; 80048; 80053; 81001; 81025; 82962; 83690; 85025; 88304; 96374; 96375; A7015; A9537; J0360; J0696; J0780; J1100; J1610; J1650; J1885; J2001; J2250; J2370; J2405; J2704; J2710; J3010; J3490; J7030; J7120; Q9967; 99285-25

== ENCOUNTER → 2020-10-26 | Outpatient (CLI) | payer OTHER ==
[~2020-10-26] MED LIST changes: +AMOX1TAB10 PO; +HYDR-2145 PO; +LISI10TA16 PO; +OXYC1TAB15 PO; -PANT40TA3 PO; +PANT40TA77 PO
--- NOTE | 2020-10-26 10:50 | RAD ---
XR SHOULDER_RIGHT 2+ VIEWS DATE: 10/26/2020 10:10 AM INDICATION: RIGHT SHOULDER PAIN COMPARISON: None. FINDINGS: Bones: There is no evidence of acute fracture or dislocation. Joints: Moderate degenerative changes of the acromioclavicular joint. Glenohumeral joint is congruent . The acromiohumeral distance is not narrowed. Miscellaneous: Calcification overlying the soft tissues along the posterolateral aspect of the susan l head IMPRESSION: 1. No acute osseous abnormality. 2. Calcification overlying the soft tissues along the posterolateral aspect of the humeral head may r elate to calcific tendinopathy. 3. Moderate AC joint degenerative changes. Electronically signed by: Desmond Cortes MD (10/26/2020 10:48 AM) [id number]
== END ==
LOC: RAD 08:53
PROVIDERS: ATTEND Anesthesiology Pain Medicine
DX: Z02.71 Encounter for disability determination (principal); M19.011 Primary osteoarthritis, right shoulder
CPT/HCPCS: 73030